=== PATIENT | female | born 1965 | race Caucasian/White ===

== ENCOUNTER 2019-06-17 08:12 | Emergency (ER) | payer SELFPAY ==
[~2019-06-17] VITALS: Ht 157.5 cm; Wt 72.6 kg
[~2019-06-17 08:12] MED LIST: BACL20 PO; CHLO4 PO; CLON.1 PO; CLON.5 PO; CYCL10 PO; DIPH25 PO; DULO60 PO; FISH1000 PO; FURO40 PO; GABA400 PO; GABA600 PO; HYDACE10B PO; HYDACE5 PO; METH10 PO; METH5 PO; MIDO2.5 PO; MULVITMINE PO; NUVIGIL PO; POTCHL20ER PO; PRIMATINE MIST; SPIR25 PO; ZOLP10 PO; ZOLP5 PO
[2019-06-17] MEDS ORDERED: DULO60 PO (08:36)
[2019-06-17] MEDS ORDERED: Neurontin400 MG PO (08:36)
[2019-06-17 09:19] LABS: Bilirubin, Urine Neg (Neg); Blood, Urine Neg (Neg); Glucose Qualitative, Urine Neg (Neg); Ketones, Urine Neg (Neg); Leukocyte Esterase, Urine Neg (Neg); Nitrite, Urine Neg (Neg); Protein, Urine Neg (Neg); Urobilinogen, Urine NORM (Normal); pH, Urine 6.5 (5.0-8.0)
[2019-06-17 09:20] LABS: BASOPHILS ABSOLUTE AUTO 0.06 K/mm3 (0.00-0.23); BASOPHILS PERCENT AUTO 1 % (0-2); EOSINOPHILS ABSOLUTE AUTO 0.15 K/mm3 (0.00-0.68); EOSINOPHILS PERCENT AUTO 2 % (0-6); IMMATURE GRAN ABSOLUTE AUTO 0.01 K/mm3 (0.00-0.10); IMMATURE GRAN PERCENT AUTO 0 % (0-1); LYMPHOCYTES ABSOLUTE AUTO 1.98 K/mm3 (0.84-5.20); LYMPHOCYTES PERCENT AUTO 29 % (21-46); MONOCYTES ABSOLUTE AUTO 0.73 K/mm3 (0.16-1.47); MONOCYTES PERCENT AUTO 11 % (4-13); Mean Corpuscular Volume 81 fL (80-100); Mean Platelet Volume 9.8 fL (9.1-12.4); NEUTROPHILS ABSOLUTE AUTO 3.82 K/mm3 (1.96-9.15); NEUTROPHILS PERCENT AUTO 57 % (41-73); Platelet Count 265 K/mm3 (150-400); RDW Coefficient Variation 14.6 % (11.7-14.2); RDW Standard Deviation 43.3 fL (35.1-46.3); White Blood Cell Count 6.75 K/mm3 (4.00-11.30)
[2019-06-17 09:29] LABS: Appearance, Urine Clear (Clear); Color, Urine Yellow (P-Yellow)
[2019-06-17 09:51] LABS: Alanine Aminotransfer (ALT/SGP 49 U/L (12-78); Albumin, Blood 3.8 g/dL (3.4-5.0); Albumin/Globulin Ratio 0.7 (0.8-1.8); Alk Phos 122 U/L (50-136); Anion Gap 8 mmol/L (6-16); Aspartate Aminotrans (AST/SGOT 89 U/L (12-37); Bilirubin, Total 0.7 mg/dL (0.1-1.0); Blood Urea Nitrogen 6 mg/dL (8-24); Bun/Creatinine Ratio 10.6 (12.0-20.0); CO2, Blood 27 mmol/L (21-32); Chloride, Blood 104 mmol/L (98-108); Creatinine, Blood 0.56 mg/dL (0.40-1.00); Globulin, Blood 5.1 g/dL (2.2-4.0); Glomerular Filtration Rate >60 (60-); Glucose, Blood 101 mg/dL (70-99); Potassium, Blood 2.7 mmol/L (3.5-5.5); Sodium, Blood 139 mmol/L (136-145); Total Protein, Blood 8.9 g/dL (6.4-8.2)
[2019-06-17] MEDS ORDERED: POTCHL20ER PO (12:41)
[2019-06-17] MEDS ORDERED: Bentyl20 MG PO (12:41)
== END 2019-06-17 12:53 | disposition home or self-care (01) ==
LOC: ER 08:12
PROVIDERS: Emergency Medicine
DX: K50.90 Crohn's disease, unspecified, without complications (principal); E87.6 Hypokalemia; F17.210 Nicotine dependence, cigarettes, uncomplicated
CPT/HCPCS: 36415; 74177; 80053; 81003; 83690; 85025; 96365-59; 96375; 99284-25; A9270; J1885; J3480; Q9967

== ENCOUNTER 2019-09-13 19:12 | Inpatient (IN) | payer SELFPAY ==
[~2019-09-13] VITALS: Ht 152.4 cm; Wt 76.6 kg
[~2019-09-13 19:12] MED LIST changes: +ALBU90OI INH; +Bentyl20 MG PO; +K-Dur20 MEQ PO; +Neurontin400 MG PO
[2019-09-13 19:40] LABS: BASOPHILS ABSOLUTE AUTO 0.03 K/mm3 (0.00-0.23); BASOPHILS PERCENT AUTO 0 % (0-2); EOSINOPHILS ABSOLUTE AUTO 0.01 K/mm3 (0.00-0.68); EOSINOPHILS PERCENT AUTO 0 % (0-6); IMMATURE GRAN ABSOLUTE AUTO 0.05 K/mm3 (0.00-0.10); IMMATURE GRAN PERCENT AUTO 0 % (0-1); LYMPHOCYTES ABSOLUTE AUTO 2.26 K/mm3 (0.84-5.20); LYMPHOCYTES PERCENT AUTO 18 % (21-46); MONOCYTES ABSOLUTE AUTO 1.05 K/mm3 (0.16-1.47); MONOCYTES PERCENT AUTO 9 % (4-13); Mean Corpuscular HGB 20.6 pg (26.0-34.0); Mean Corpuscular HGB Conc 29.2 g/dL (31.5-36.5); Mean Corpuscular Volume 71 fL (80-100); Mean Platelet Volume 10.4 fL (9.1-12.4); NEUTROPHILS ABSOLUTE AUTO 9.01 K/mm3 (1.96-9.15); NEUTROPHILS PERCENT AUTO 73 % (41-73); NRBC ABSOLUTE 0.07 K/mm3 (0.00-0.02); NRBC Auto 0.6 /100 WBC (0.0-0.2); Platelet Count 344 K/mm3 (150-400); RDW Coefficient Variation 17.2 % (11.7-14.2); RDW Standard Deviation 43.4 fL (35.1-46.3); Red Blood Cell Count 2.18 M/mm3 (3.80-5.20); White Blood Cell Count 12.41 K/mm3 (4.00-11.30)
[2019-09-13 19:46] LABS: Hematocrit 15.4 % (33.0-51.0)
[2019-09-13 19:47] LABS: Hemoglobin 4.5 g/dL (11.5-16.0)
[2019-09-13 19:48] LABS: Alanine Aminotransfer (ALT/SGP 37 U/L (12-78); Albumin/Globulin Ratio 0.8 (0.8-1.8); Alk Phos 72 U/L (50-136); Anion Gap 19 mmol/L (6-16); Aspartate Aminotrans (AST/SGOT 63 U/L (12-37); Bilirubin, Total 0.7 mg/dL (0.1-1.0); Blood Urea Nitrogen 19 mg/dL (8-24); Bun/Creatinine Ratio 34.4 (12.0-20.0); CO2, Blood 17 mmol/L (21-32); Calcium, Blood 8.6 mg/dL (8.5-10.1); Chloride, Blood 102 mmol/L (98-108); Creatinine, Blood 0.55 mg/dL (0.40-1.00); Globulin, Blood 3.7 g/dL (2.2-4.0); Glomerular Filtration Rate >60 (60-); Glucose, Blood 142 mg/dL (70-99); Potassium, Blood 2.9 mmol/L (3.5-5.5); Sodium, Blood 138 mmol/L (136-145); Total Protein, Blood 6.7 g/dL (6.4-8.2)
[2019-09-13 19:58] LABS: International Normalized Ratio 1.36; Prothrombin Time Results 14.3 Sec (9.7-11.5)
[2019-09-13] MEDS ORDERED: BUPROPION HCL75 M1 PO (20:04)
[2019-09-13 20:48] LABS: Percent Saturation 3.2 % (15.0-50.0)
--- NOTE | 2019-09-13 22:09 | NUR ---
ADMIT NOTE HANDOFF RECEIVED FROM ER NURSE KENYATTA. PT ARRIVED TO FLOOR VIA GURNEY. PERSONAL POSSESSIONS WITH PT IN ROOM. PT ORIENTED TO UNIT. CALL BUTTON WITHIN REACH.
--- NOTE | 2019-09-14 00:10 | NUR ---
CALLED HOSPITALIST PT IS TACHYCARDIC (WAS ON ADMIT). SHE IS ALSO TACHYPNEIC AND NAUSEOUS. HER GLUCOSE IS 115. SHE STATED SHE OCCASIONALLY DRINKS, ALCOHOL OF ALL KINDS. HOSPITALIST ORDERED UA AND BLOOD ALCOHOL LEVEL.
[2019-09-14 00:34] LABS: U Amphetamine Screen Not Detected; U Barbituate Screen Not Detected; U Benzodiazapine Screen Not Detected; U Buprenorphine Screen Not Detected; U Cannabinoids Screen Not Detected; U Cocaine Screen Not Detected; U Methadone Screen Not Detected; U Methamphetamine Screen Not Detected; U Opiates Screen Not Detected; U Oxycodone Screen Not Detected; U Phencyclidine Screen Not Detected; U Propoxyphene Screen Not Detected
[2019-09-14 00:35] LABS: Ethanol (Alcohol), Blood, Med 99 mg/dL
[2019-09-14 02:41] LABS: BASOPHILS ABSOLUTE AUTO 0.08 K/mm3 (0.00-0.23); BASOPHILS PERCENT AUTO 1 % (0-2); EOSINOPHILS ABSOLUTE AUTO 0.02 K/mm3 (0.00-0.68); EOSINOPHILS PERCENT AUTO 0 % (0-6); Hematocrit 19.9 % (33.0-51.0); Hemoglobin 6.6 g/dL (11.5-16.0); IMMATURE GRAN ABSOLUTE AUTO 0.07 K/mm3 (0.00-0.10); IMMATURE GRAN PERCENT AUTO 1 % (0-1); LYMPHOCYTES PERCENT AUTO 17 % (21-46); MONOCYTES ABSOLUTE AUTO 1.93 K/mm3 (0.16-1.47); MONOCYTES PERCENT AUTO 15 % (4-13); Mean Corpuscular HGB Conc 33.2 g/dL (31.5-36.5); Mean Platelet Volume 9.9 fL (9.1-12.4); NEUTROPHILS ABSOLUTE AUTO 8.73 K/mm3 (1.96-9.15); NEUTROPHILS PERCENT AUTO 67 % (41-73); NRBC ABSOLUTE 0.11 K/mm3 (0.00-0.02); NRBC Auto 0.8 /100 WBC (0.0-0.2); Platelet Count 248 K/mm3 (150-400); RDW Coefficient Variation 18.1 % (11.7-14.2); RDW Standard Deviation 47.4 fL (35.1-46.3); Red Blood Cell Count 2.64 M/mm3 (3.80-5.20); White Blood Cell Count 13.03 K/mm3 (4.00-11.30)
[2019-09-14 02:47] LABS: Mean Corpuscular Volume 75 fL (80-100)
[2019-09-14 02:58] LABS: Alanine Aminotransfer (ALT/SGP 40 U/L (12-78); Albumin, Blood 2.8 g/dL (3.4-5.0); Albumin/Globulin Ratio 0.8 (0.8-1.8); Alk Phos 65 U/L (50-136); Anion Gap 10 mmol/L (6-16); Aspartate Aminotrans (AST/SGOT 71 U/L (12-37); Bilirubin, Total 2.2 mg/dL (0.1-1.0); Blood Urea Nitrogen 20 mg/dL (8-24); Bun/Creatinine Ratio 40.4 (12.0-20.0); CO2, Blood 24 mmol/L (21-32); Calcium, Blood 8.1 mg/dL (8.5-10.1); Chloride, Blood 103 mmol/L (98-108); Globulin, Blood 3.5 g/dL (2.2-4.0); Glomerular Filtration Rate >60 (60-); Glucose, Blood 134 mg/dL (70-99); Potassium, Blood 3.2 mmol/L (3.5-5.5); Sodium, Blood 137 mmol/L (136-145); Total Protein, Blood 6.3 g/dL (6.4-8.2)
--- NOTE | 2019-09-14 05:53 | NUR ---
CALLED HOSPITALIST FOLLOWING TRANSFUSION OF 2 UNITS PRBC'S: PT HGB LAB HAS RISEN FROM 4.5 TO 6.6, HCT LAB HAS RISEN FROM 15.4 TO 19.9, WBC COUNT HAS RISEN FROM 12.41 TO 13.03. HOSPITALIST ADVISED ME TO CONTINUE TO MONITOR, NO NEW ORDERS. THEY WILL RE-EVALUATE IN THE AM.
--- NOTE | 2019-09-14 05:58 | NUR ---
SHIFT SUMMARY PT ADMITTED FOR SYMPTOMATIC ANEMIA. FULL CODE. 2 UNITS OF PRBC'S TRANSFUSED (SEE PREVIOUS NOTE). PT HAS TREMORS, IS TACHYCARDIC & TACHYPNEIC. SHE HAS DYSPNEA W/EXERTION. SHE IS ALSO NAUSEOUS. GLUCOSE IS 115, WE DID DO A UA - NEGATIVE, A BLOOD ALCOHOL LEVEL - THAT WAS 99. STILL REQUIRE A STOOL SAMPLE. HOPEFUL FOR A GI CONSULT. CLEAR LIQUID DIET. I AM UNSURE IF SHE IS COMPLETELY A&O X4 SHE DENIED EVER GETTING A COVID TEST, ALTHOUGH THIS IS DOCUMENTED IN HER HX. IT IS REPORTED TO ME THAT HER PURSE IS FILLED WITH LITTLE BLACK SUGAR ANTS, SO WE HAVE STICKY MAT DOWN AT THE DOORWAY AND THE PURSE IS BAGGED. HX: POSSIBLE IBS/CROHNS DISEASE, HYPOKALEMIA, NOSEBLEEDS 2X/WEEK, SMOKES 5 CIGARETTES PER DAY.
--- NOTE | 2019-09-14 07:00 | NUR ---
ASSUMED CARE OF PT- BEDSIDE REORT COMPKLETED WITH NIGHT DEBORAH BLAKE. PER REPORT PT HAS BEEN ANXIOUS T/O THE NIGHT, HGB WAS CRITICALLY LOW AT 4.5. PT HAD 2 UNITS PRBC'S T/O THE NIGHT AND FOLLOW UP HGB WAS 6.6. WAS NOTIFIED NO NEW ORDR TO TRANSFUSE LAST NIGHT. PT SLEEPING SOUNDLY AT THE TIME OF BEDSIDE REPORT, "THIS IS THE MOST RELAXED SHE HAS BEEN ALL NIGHT." PER REPORT FROM NIGHT RN PT WAS REPORTED TO BE A&O X4 BUT FOR HER WAS MORE LIKE A&O TO SELF.
--- NOTE | 2019-09-14 07:40 | NUR ---
PROJECT EXECUTIVE KIRIT NOTIFIED OF VEWS SCORE AND PT STATUS ASSISTED IN CALLING DR HERNANDEZ. PT WAS ABLE TO SWALLOW A SIP OF WATER. ABD ROUND AND DISTENDED. NO BM ON SALESPERSON YARD GOODS. ORDER FOR STOOL SAMPLE NOTED IN THE COMPUTER, HOWEVER GUIACC IN ED WAS NEGATIVE. NEW ORDER FOR GI CONSULT RECIEVED WILL CALL DR CEBALLOS.
--- NOTE | 2019-09-14 07:45 | NUR ---
CALLED DR HERNANDEZ- ON MORNING VITALS PT HAD A VEW SCORE OF 4 RESP RATE 28. PT FOLLOWS INSTRUCTIONS BUT MOANS AND HAS MINIMAL VERBAL RESPONSES. SHE CAN MUMBLE HER DATE OF SHAKE AND NOD HER HEAD. AT THE TIME OF VITALS SHE WAS VERY LETHARGIC AND TACHYPNEIC. PUPILS ARE 8MM AND VERY SLUGGISH TO RESPOND. WHEN ASKED IF SHE DRINKS ALCOHOL EVERY DAY PT NODS YES. UNABLE TO DETERMINE HOW MUCH SHE DRINKS. SPOKE TO ABOUT PT HGB 6.6 AND RECIEVED ORDER FOR ANOTHER 2 UNITS PRBC.
--- NOTE | 2019-09-14 08:10 | NUR ---
CALLED BLOOD BANK TO ENSURE THEY GOT THE ORDER. THEY HAD NOT YET GOTTEN IT, WORKING ON IT NOW.
--- NOTE | 2019-09-14 10:38 | NUR ---
1004PT TRANSFERED TO PCU FROM MEDICAL FLOOR VIA BED. BEDS EXCHANGED. PT RECIEVING PRBC UNIT 3 OF 4 ORDERED. PT LETHARGIC, ARROUSED WITH VERBAL STIMULATION. PT IS CONFUSED, NEW NAME AND , DID NOT ANSWER MONTH OR YEAR CORRENCTLY. PUPILS DIALATED TO 6MM, ALTHOUGH EYES WERE MOSTLY CLOSED, TEST DEPARTMENT HELPER EQUAL. PT DENIED PAIN. TACHYNEPNIC, TAHCYCARDIC. LUNGS CLEAR. DR. HERNANDEZ NOTIFIED OF ASSESSMENT, NO NEW ORDERS RECIEVED.
--- NOTE | 2019-09-14 11:09 | NUR ---
Pt is moaning, awakened and states she needs to poop. Asssisted to BSC but she was unable to have a BM. Denies pain. spo2 100% on room air. States that she drinks about 6 shots of whiskey per day, and that last drink was 2 days ago. STates that she has had withdrawl symptoms before, and she feels that she is having them now, too. Denies headache, denies hallucinations, denies anxiety or agitation. Noted shakiness of all extremities and also she is c/o nausea. Unable to state date except for year, unable to add serial numbers. Able to state her own name and birthdate. She is moaning softly, but denies pain. When asked why she is moaning, she states "because I can't breathe." RR 14 when she is sleeping, up to 20 while awake.
--- NOTE | 2019-09-14 12:53 | NUR ---
BLADDER SCAN VOLUME 516 AFTER TWO ATTEMPTS TO VOID. DR. HERNANDEZ NOTIFIED AND SHE REPORTED THAT SHE PLACE ORDERS FOR BLADDER SCAN AND STRAIGHT CATH.
[2019-09-14 17:49] LABS: Hematocrit 23.6 % (33.0-51.0); Hemoglobin 8.4 g/dL (11.5-16.0)
--- NOTE | 2019-09-14 17:56 | NUR ---
SHIFT SUMMARY. TRANSFER FROM MEDICAL FLOOR TODAY FOR AMS AND SOB. PT CONFUSED THIS SHIFT, COGNITION IMPROVED SLIGHTLY THIS AFTERNOON AFTER LIBRIUM WAS GIVEN. PT IS ONLY ORIENTATED TO SELF AND KNEW SHE WAS IN THE HOSPITAL. IS ABLE TO FOLLOW SIMPLE COMMANDS. CIWA 7-9. 2 UNITS PRBC COMPLETED TODAY. BANANNA BAG COMPLETED. PT'S YUNI UPDATED ON STATUS. DR. CEBALLOS CONSULTED THIS AFTERNOON.
[2019-09-14 20:44] LABS: Hemoglobin 8.7 g/dL (11.5-16.0)
--- NOTE | 2019-09-14 22:33 | NUR ---
ASSUMED CARE OF PATIENT AT APPROXIMATELY 1905 FROM FRANNY Peralta RN. PATIENT RESPONDS TO VERBAL STIMULUS. PATIENT ABLE TO STATE NAME AND AFTER LONG PERIODS; SLOW TO RESPOND; MOANS MOST OF TIME; ANSWERS WITH ONE WORD AT A TIME; CIWA 10. PATIENT DENIES PAIN, NUMBNESS, TINGLING, DIZZINESS OR NAUSEA. NSR/ST ON TELE; OXYGEN SATURATION ABOVE 90% ON ROOM AIR; RESPIRATORY RATE INCRASES BY 10 WHEN PATIENT WAKES UP AND STAFF ARE IN ROOM. PIV X2 S/L. PATIENT VERY IMPULSIVE; DOESNT CALL BEFORE AMBULATION; FALL RISK. PATIENT ATTMEPTED TO VOID TWICE AND NO OUTPUT; 150 AT START OF SHIFT; BLADDER SCAN OVER 500; WILL CALL MD FOR ORDERS. PATIENT CURRENTLY RESTING IN BED; CALL LIGHT IN REACH; BED IN LOWESEST PSOSTION; BED ALARM ON; WILL CONTINUE TO MONITOR AND ASSESS UNTIL END OF SHIFT.
[2019-09-14 23:36] LABS: Source, Urine Catheter
[2019-09-14 23:39] LABS: Bilirubin, Urine Neg (Neg); Blood, Urine Neg (Neg); Glucose Qualitative, Urine Neg (Neg); Ketones, Urine 1+ (Neg); Leukocyte Esterase, Urine Neg (Neg); Nitrite, Urine Neg (Neg); Protein, Urine Neg (Neg); Urobilinogen, Urine 3+ (Normal)
[2019-09-14 23:41] LABS: Appearance, Urine Clear (Clear); Color, Urine Yellow (P-Yellow)
[2019-09-15 03:35] LABS: BASOPHILS ABSOLUTE AUTO 0.09 K/mm3 (0.00-0.23); BASOPHILS PERCENT AUTO 1 % (0-2); EOSINOPHILS ABSOLUTE AUTO 0.33 K/mm3 (0.00-0.68); EOSINOPHILS PERCENT AUTO 3 % (0-6); Hematocrit 23.1 % (33.0-51.0); Hemoglobin 8.3 g/dL (11.5-16.0); IMMATURE GRAN ABSOLUTE AUTO 0.03 K/mm3 (0.00-0.10); IMMATURE GRAN PERCENT AUTO 0 % (0-1); LYMPHOCYTES ABSOLUTE AUTO 2.01 K/mm3 (0.84-5.20); LYMPHOCYTES PERCENT AUTO 21 % (21-46); MONOCYTES PERCENT AUTO 9 % (4-13); Mean Corpuscular HGB 28.5 pg (26.0-34.0); Mean Corpuscular HGB Conc 35.9 g/dL (31.5-36.5); Mean Platelet Volume 9.9 fL (9.1-12.4); NEUTROPHILS ABSOLUTE AUTO 6.28 K/mm3 (1.96-9.15); NEUTROPHILS PERCENT AUTO 65 % (41-73); NRBC ABSOLUTE 0.05 K/mm3 (0.00-0.02); NRBC Auto 0.5 /100 WBC (0.0-0.2); Platelet Count 175 K/mm3 (150-400); RDW Coefficient Variation 18.6 % (11.7-14.2); RDW Standard Deviation 50.1 fL (35.1-46.3); Red Blood Cell Count 2.91 M/mm3 (3.80-5.20); White Blood Cell Count 9.64 K/mm3 (4.00-11.30)
[2019-09-15 03:36] LABS: Mean Corpuscular Volume 79 fL (80-100)
[2019-09-15 03:50] LABS: Albumin, Blood 2.8 g/dL (3.4-5.0); Anion Gap 7 mmol/L (6-16); Blood Urea Nitrogen 13 mg/dL (8-24); Bun/Creatinine Ratio 22.1 (12.0-20.0); CO2, Blood 26 mmol/L (21-32); Calcium, Blood 8.1 mg/dL (8.5-10.1); Chloride, Blood 106 mmol/L (98-108); Creatinine, Blood 0.59 mg/dL (0.40-1.00); Glomerular Filtration Rate >60 (60-); Glucose, Blood 107 mg/dL (70-99); Phosphorus, Blood 2.7 mg/dL (2.5-4.9); Potassium, Blood 2.5 mmol/L (3.5-5.5); Sodium, Blood 139 mmol/L (136-145)
--- NOTE | 2019-09-15 05:34 | NUR ---
PATIENT SLEPT ABOUT NINE HOURS LAST NIGHT. LESS ANXIETY. CIWA 10; MEDICATED WITH LIBRIUM; GOOD RESULTS. URINARY CATH PLACED LAST NIGHT; UA SENT. VSS. K+ 2.5 THIS AM; CALLED DR. SEARS; ORDERS FOR PO KCL. WILL CONTINUE TO MONITOR AND ASSESS UNTIL END OF SHIFT.
--- NOTE | 2019-09-15 18:35 | NUR ---
PT SUMMARY: PT ON ETOH WITHDRAWAL, ALERT TO SELF KNOWS WHERE SHE'S AT, UNSURE OF TIME AND DATE. CIWA HAS BEEN 10,12,8 FOR THE SHIFT. LIBRIUM ADMINISTERED X 3 FOR THE SHIFT, C/O MILD NAUSEA RELIEVED BY SODA. PT HAS BEEN RECEIVING LACTULOSE QID HAD ABOUT 5X BM OF LOOSE SOFT BLACK BROWN STOOL. STOOL SAMPLE SENT TO LAB FOR TESTING. NO TREMORS NOTED, NO HEADACHE REPORTED, PT C/O LEFT LOWER BACK PAIN, PT ALSO STATE SHE WAS NEWLY DIAGNOSED WITH CROHN'S DSE, LACTULOSE WAS HOLD FOR TODAY'S LAST DOSE DR. HERNANDEZ TO PUT NEW ORDERS IN THE AM FOR LACTULOSE. PT WAS ABLE TO TRANSFER SBA TO THE BATH ROOM, BED ALARM ON ATTEMPTS TO TRY TO GET UP BY HERSELF BUT IS ABLE TO USE STRING CALL SYSTEM IN THE BATHROOM. PT FOLLOWS DIRECTION BUT GETS EASILY DISTRACTED. POTASSIUM WAS 3.0 THIS MORNING 2 BAG OF 20MEQ GIVEN LABS TO FOLLOW IN AM. PT REMAINS ON CLEAR LIQUID DIET. CURRENTLY RESTING IN BED, CALL LIGHTS WITHIN REACH WILL MONITOR
--- NOTE | 2019-09-15 20:53 | NUR ---
ASSUMED CARE OF PATIENT AT APPROXIMATELY 1905 FROM BLAIR Rodríguez RN. PATIENT RESPONDS TO VERBAL STIMULUS; OPENS EYES SPONTANEOUSLY. PATIENT MORE ALERT TODAY; ABLE TO STATE NAME, AND LOCATION BUT UNABLE TO STATE DATE. PATIENT REPORTS SHE WISHES HER WAS HERE WITH HER; REPORTS SHE IS CONCERNED THAT SHE MAY HAVE LOST HER JOB. CIWA 8. PATIENT DENIES PAIN, NUMBNESS, TINGLING, DIZZINESS OR NAUSEA. NSR ON TELE; OXYGEN SATURATION ABOVE 90% ON ROOM AIR. PATIENT HAD MULTIPLE LOOSE BMS TODAY; LACTULOSE HELD. PATIENT WEAK; MODERATE ASSIST TO BATHROOM; ATTENDS IN PLACE; URINARY CATH IN PLACE. PIV S/L. PATIENT VERY IMPULSIVE AT TIMES; DOESNT CALL BEFORE AMBULATION; FALL RISK. PATIENT CURRENTLY RESTING IN BED; CALL LIGHT IN REACH; BED IN LOWESEST PSOSTION; BED ALARM ON; WILL CONTINUE TO MONITOR AND ASSESS UNTIL END OF SHIFT.
[2019-09-16 04:06] LABS: HBSAG SCREEN Negative (Negative); HCV ANTIBODY <0.1 (0.0-0.9); HEP B CORE AB, TOT Negative (Negative)
[2019-09-16 04:17] LABS: BASOPHILS ABSOLUTE AUTO 0.05 K/mm3 (0.00-0.23); BASOPHILS PERCENT AUTO 0 % (0-2); EOSINOPHILS ABSOLUTE AUTO 0.14 K/mm3 (0.00-0.68); EOSINOPHILS PERCENT AUTO 1 % (0-6); Hematocrit 24.2 % (33.0-51.0); Hemoglobin 8.4 g/dL (11.5-16.0); IMMATURE GRAN ABSOLUTE AUTO 0.05 K/mm3 (0.00-0.10); IMMATURE GRAN PERCENT AUTO 0 % (0-1); LYMPHOCYTES PERCENT AUTO 8 % (21-46); MONOCYTES ABSOLUTE AUTO 0.72 K/mm3 (0.16-1.47); MONOCYTES PERCENT AUTO 6 % (4-13); Mean Corpuscular HGB 28.1 pg (26.0-34.0); Mean Corpuscular HGB Conc 34.7 g/dL (31.5-36.5); Mean Corpuscular Volume 81 fL (80-100); Mean Platelet Volume 10.3 fL (9.1-12.4); NEUTROPHILS ABSOLUTE AUTO 10.37 K/mm3 (1.96-9.15); NEUTROPHILS PERCENT AUTO 84 % (41-73); NRBC ABSOLUTE 0.04 K/mm3 (0.00-0.02); NRBC Auto 0.3 /100 WBC (0.0-0.2); Platelet Count 171 K/mm3 (150-400); RDW Coefficient Variation 21.5 % (11.7-14.2); RDW Standard Deviation 52.4 fL (35.1-46.3); Red Blood Cell Count 2.99 M/mm3 (3.80-5.20); White Blood Cell Count 12.33 K/mm3 (4.00-11.30)
[2019-09-16 04:46] LABS: Albumin, Blood 2.7 g/dL (3.4-5.0); Anion Gap 7 mmol/L (6-16); Blood Urea Nitrogen 9 mg/dL (8-24); Bun/Creatinine Ratio 19.1 (12.0-20.0); CO2, Blood 23 mmol/L (21-32); Calcium, Blood 7.9 mg/dL (8.5-10.1); Chloride, Blood 107 mmol/L (98-108); Creatinine, Blood 0.47 mg/dL (0.40-1.00); Glomerular Filtration Rate >60 (60-); Glucose, Blood 126 mg/dL (70-99); Phosphorus, Blood 2.9 mg/dL (2.5-4.9); Potassium, Blood 2.8 mmol/L (3.5-5.5); Sodium, Blood 137 mmol/L (136-145)
--- NOTE | 2019-09-16 06:23 | NUR ---
PATIENT BECAME MORE DISORIENTED T/O NIGHT; LIGHT BOTHERING HER EYES; AMBULATED MULTIPLE TIMES TO HAVE BM BUT NO BM. PATIENT WAS MEDICATED FOR CIWA 8-10. PATINET SLEPT ABOUT SEVEN HOURS LAST NIGHT. CALL DR. PATEL ABOUT K+ 2.8; ORDERS FOR 2X 40 MEQ 2 HOURS APART THEN REPEAT K+ AT 1300. VSS. WILL CONTINUE TO MONITOR AND ASSESS UNTIL END OF SHIFT.
[2019-09-16 07:07] LABS: COMPLEMENT C3, SERUM 97 mg/dL (82-167); COMPLEMENT C4, SERUM 12 mg/dL (14-44)
[2019-09-16 08:34] LABS: Stool Occult Bld Immuno 1 Positive (NEGATIVE)
--- NOTE | 2019-09-16 19:21 | NUR ---
PT SUMMARY: PT RESPONDS TO VERBAL STIMULI SOMETIMES UNABLE TO KEEP A CONVERSATION, SOMETIMES ABLE TO RESPOND AND TALK NORMALLY AND IS ABLE TO AMBULATE 1 PA TO THE BATHROOM. CIWA WAS 7-8 EARLY THIS SHIFT, BY THEEND OF THE SHIFT PT WAS C/O THIRST AND WAS TOLD SHE CANT HAVE ANYTHING DRINK PER DR'S ORDER PT STARTED TO GET AGITATED/EMOTIONAL STATING SHE WANTS SOMETHING TO DRINK AND WONT STAY STILL IN BED. PT WAS GIVEN ATIVAN X1 PT STARTED CALMING DOWN. NO BOWEL MOVEMENTS REPORTED FOR THE SHIFT, NO NAUSEA, HEADACHE, TREMORS NOTED. POTASSIUM CURRENTLY AT 3.2, AMMONIA LEVEL WENT UP TO 74, TO START ENEMA ENULOSE IN THE AM QD. PT NOW RESTING IN BED. RESPORT GIVEN TO ONCOMING SHIFT.
--- NOTE | 2019-09-16 22:54 | NUR ---
ASSUMED CARE OF PATIENT AT APPROXIMATELY 1905 FROM BLAIR Rodríguez RN. PATIENT RESPONDS TO VERBAL STIMULUS; MOANING IN BED; ONE WORD AT A TIME; LETHARGIC. PATIENT VERY IMPULSIVE TONIGHT. CIWA 10. PATIENT DENIES PAIN, NUMBNESS, TINGLING, DIZZINESS OR NAUSEA. NSR ON TELE; OXYGEN SATURATION ABOVE 90% ON ROOM AIR. PATIENT NPO. PATIENT WEAK; MAX ASSIST TO BATHROOM; ATTENDS IN PLACE; URINARY CATH IN PLACE. PIV S/L. PATIENT DOESNT CALL BEFORE AMBULATION; FALL RISK. CALLED MAINTENANCE ELECTRICIAN SANDIP AT [facility] 2220 TO REPORT PATIENT IMPULSIVE; AMBULATING EVERY FEW MINUTES AT TIMES; CONFUSION; RISK FOR INJURY AND CIWA OF 10; ORDER FOR VEST. PATIENT STILL ATTEMPTING TO GET OUT OF BED WITH VEST ON. PATIENT CURRENTLY RESTING IN BED; CALL LIGHT IN REACH; BED IN LOWESEST PSOSTION; BED ALARM ON; WILL CONTINUE TO MONITOR AND ASSESS UNTIL END OF SHIFT.
[2019-09-17 03:44] LABS: BASOPHILS ABSOLUTE AUTO 0.08 K/mm3 (0.00-0.23); BASOPHILS PERCENT AUTO 1 % (0-2); EOSINOPHILS ABSOLUTE AUTO 0.53 K/mm3 (0.00-0.68); EOSINOPHILS PERCENT AUTO 3 % (0-6); Hematocrit 22.7 % (33.0-51.0); Hemoglobin 7.6 g/dL (11.5-16.0); IMMATURE GRAN ABSOLUTE AUTO 0.05 K/mm3 (0.00-0.10); IMMATURE GRAN PERCENT AUTO 0 % (0-1); LYMPHOCYTES ABSOLUTE AUTO 2.06 K/mm3 (0.84-5.20); LYMPHOCYTES PERCENT AUTO 12 % (21-46); MONOCYTES PERCENT AUTO 7 % (4-13); Mean Corpuscular HGB Conc 33.5 g/dL (31.5-36.5); Mean Platelet Volume 10.3 fL (9.1-12.4); NEUTROPHILS ABSOLUTE AUTO 13.67 K/mm3 (1.96-9.15); NEUTROPHILS PERCENT AUTO 78 % (41-73); NRBC ABSOLUTE 0.02 K/mm3 (0.00-0.02); NRBC Auto 0.1 /100 WBC (0.0-0.2); Platelet Count 175 K/mm3 (150-400); RDW Coefficient Variation 24.6 % (11.7-14.2); RDW Standard Deviation 55.6 fL (35.1-46.3); Red Blood Cell Count 2.71 M/mm3 (3.80-5.20); White Blood Cell Count 17.59 K/mm3 (4.00-11.30)
[2019-09-17 03:48] LABS: Mean Corpuscular Volume 84 fL (80-100)
[2019-09-17 03:59] LABS: Albumin, Blood 2.5 g/dL (3.4-5.0); Anion Gap 7 mmol/L (6-16); Blood Urea Nitrogen 6 mg/dL (8-24); Bun/Creatinine Ratio 11.8 (12.0-20.0); CO2, Blood 24 mmol/L (21-32); Calcium, Blood 7.8 mg/dL (8.5-10.1); Chloride, Blood 108 mmol/L (98-108); Creatinine, Blood 0.51 mg/dL (0.40-1.00); Glomerular Filtration Rate >60 (60-); Glucose, Blood 107 mg/dL (70-99); Phosphorus, Blood 2.7 mg/dL (2.5-4.9); Sodium, Blood 139 mmol/L (136-145)
--- NOTE | 2019-09-17 05:57 | NUR ---
PATIENT'S CIWA UP TO 23 AT ONE POINT; MEDICATED PER EMAR. VSS. NO OTHER ACUTE CHANGES TO REPORT. WILL CONTINUE TO MONITOR AND ASSESS UNTIL END OF SHIFT.
[2019-09-17 12:55] LABS: Hematocrit 25.3 % (33.0-51.0); Hemoglobin 8.4 g/dL (11.5-16.0)
[2019-09-17 15:08] LABS: ANTI-DSDNA ANTIBODIES 1 IU/mL (0-9); SJOGREN'S ANTI-SS-A <0.2 AI (0.0-0.9); SJOGREN'S ANTI-SS-B <0.2 AI (0.0-0.9); SMITH ANTIBODIES <0.2 AI (0.0-0.9)
--- NOTE | 2019-09-17 17:47 | NUR ---
SHIFT SUMMARY PT ALERT AND ORIENTED TO SELF. PT NOT FOLLOWING DIRECTIONS. UNABLE TO REDIRECT PT. PT MOANS OR SPEECH IS GARBLED AND DIFFICULT TO UNDERSTAND. VS STABLE. HR NSR. BP STABLE. PT MEDICATED PER CIWA PROTOCOL. CIWA HAS BEEN FROM 1O-[address] HERNANDEZ CALLED IN REGARDS TO PT RECEIVING 22MG OF ATIVAN IN THE LAST 24 HOURS AND ALMOST REACHING THE MAX DOSE. NEW ORDERS FOR PT TO GO TO ICU FOR PRECEDEX AND CLOSER MONITORING. PT IS IN BILATERAL SOFT WRIST RESTRAINTS AND DANIELLE VEST. PT HAS BEEN ABLE TO PULL HER ARMS OUT OF WRISTS RESTRAINTS MULTIPLE TIMES AND PULLING AT LINES AND TUBES. ALLISON CATHETER IS SECURED AND DRAINING. PT HAS HAD 5 LOOSE BM THIS SHIFT AFTER LACTULOSE ENEMA. ATTENDS IN PLACE. WILL CONINTUE TO MONITOR CLOSELY UNTIL TRANSFER TO ICU BED.
--- NOTE | 2019-09-17 19:01 | NUR ---
1850 PT TRANSFERED TO ICU-7 VIA BED WITH VEST AND BLUE SOFT WRIST RESTRAINTS IN PLACE. PT CURRENTLY MOANS BUT IS LETHARGIC AND NOT FOLLOWING COMMANDS OR AGITATION. PT SEDATE AND CALM ON ATIVAN WHEN LEFT ALONE. VS NOTED. TONIE IV CLOTTED OFF. ATTENDS DRY. RR REGULAR AT 18-20 ON RA WITH 94 SATS. SR
--- NOTE | 2019-09-17 19:52 | NUR ---
DR. PIERSON INFORMED THAT PATIENT NPO AND DOES NOT HAVE ANY MAINTENANCE FLUIDS INFUSING. STATED SHE WILL LOOK INTO.
[2019-09-17 20:13] LABS: Hematocrit 25.4 % (33.0-51.0); Hemoglobin 8.3 g/dL (11.5-16.0)
--- NOTE | 2019-09-17 20:15 | NUR ---
INITIAL ASSESSMENT PATIENT SLEEPING SOUNDLY UPON ENTERING ROOM. PATIENT WAKES TO VERBAL STIMULI. PATIENT VERY IMPULSIVE AND LABILE. PATIENT EITHER SLEEPING SOUNDLY OR AWAKE, AGITATED AND TRYING TO CRAWL OUT OF BED. PATIENT NOT FORMING SENTENCES OR SAYING WORDS AT THIS TIME. PATIENT NODDING "YES" TO ALL QUESTIONS EVEN IF ANSWER IS NO. CIWA SCORE OF 13. PATIENT WEAK BUT MOVING ALL EXTREMITIES AND REPOSITIONING OWN HIPS. PATIENT AFEBRILE. PATIENT SATTING 90% AND GREATER ON RA. LUNGS CLEAR THROUGHOUT. NO COUGH NOTED AT THIS TIME. PATIENT IN SR TO ST, HR 90S TO 100. BP STABLE. PULSES STRONG. SCDS IN PLACE. NON-PITTING EDEMA NOTED TO R UPPER ARM; NON-PATENT IV DC'D IN THIS ARM THIS SHIFT. ABDOMEN MILDLY DISTENDED, TENDER, WITH NORMOACTIVE BS NOTED. UMBILICAL HERNIA NOTED. PATIENT BEING GIVEN SCHEDULED LACTULOSE DAILY. ALLISON IN PLACE, DRAINING DARK ORANGE COLORED URINE. IVS FLUSHED AND SALINE LOCKED. BED LOW, CALL LIGHT IN REACH. WILL CONTINUE TO MONITOR PATIENT FREQUENTLY THROUGHOUT SHIFT.
--- NOTE | 2019-09-17 22:10 | NUR ---
SPOKE WITH DR. PIERSON ABOUT PATIENT'S SBP OF 80 AND THAT SHE IS ON PRECEDEX AT 0.2 MCG/ KG/ HOUR. ORDERED FOR NS AT 100 MLS/ HOUR.
--- NOTE | 2019-09-17 23:57 | NUR ---
PATIENT CONTINUES TO BE EITHER SLEEPING SOUNDLY OR AWAKE AND VERY AGITATED, PULLING AT RESTRAINTS AND TRYING TO CRAWL OUT OF BED. PATIENT CONTINUES TO BE CONFUSED. CIWA SCORE OF 13. PATIENT AFEBRILE. PRECEDEX ON SB BP CONTINUES TO BE SOFT. NS INFUSING AT 100 MLS/ HOUR TO HELP WITH HYPOTENSION AND BECAUSE PATIENT IS NPO AT THIS TIME. PATIENT REMAINS SR TO ST, HR 80S TO 100. PATIENT ON 2 L NC FOR PERIODS OF APNEA WHILE SLEEPING SOUNDLY. NO OTHER ACUTE CHANGES TO NOTE ON AT THIS TIME. WILL CONTINUE TO MONITOR.
[2019-09-18 03:21] LABS: BASOPHILS ABSOLUTE AUTO 0.09 K/mm3 (0.00-0.23); BASOPHILS PERCENT AUTO 1 % (0-2); EOSINOPHILS ABSOLUTE AUTO 0.54 K/mm3 (0.00-0.68); EOSINOPHILS PERCENT AUTO 5 % (0-6); Hematocrit 24.4 % (33.0-51.0); Hemoglobin 7.8 g/dL (11.5-16.0); IMMATURE GRAN ABSOLUTE AUTO 0.03 K/mm3 (0.00-0.10); IMMATURE GRAN PERCENT AUTO 0 % (0-1); LYMPHOCYTES ABSOLUTE AUTO 1.73 K/mm3 (0.84-5.20); LYMPHOCYTES PERCENT AUTO 17 % (21-46); MONOCYTES ABSOLUTE AUTO 0.77 K/mm3 (0.16-1.47); MONOCYTES PERCENT AUTO 7 % (4-13); Mean Corpuscular HGB 27.5 pg (26.0-34.0); Mean Corpuscular Volume 86 fL (80-100); Mean Platelet Volume 10.4 fL (9.1-12.4); NEUTROPHILS PERCENT AUTO 70 % (41-73); Platelet Count 171 K/mm3 (150-400); RDW Coefficient Variation 25.2 % (11.7-14.2); RDW Standard Deviation 61.9 fL (35.1-46.3); Red Blood Cell Count 2.84 M/mm3 (3.80-5.20); White Blood Cell Count 10.36 K/mm3 (4.00-11.30)
[2019-09-18 03:37] LABS: Albumin, Blood 2.5 g/dL (3.4-5.0); Anion Gap 7 mmol/L (6-16); Blood Urea Nitrogen 5 mg/dL (8-24); Bun/Creatinine Ratio 9.7 (12.0-20.0); CO2, Blood 24 mmol/L (21-32); Calcium, Blood 7.8 mg/dL (8.5-10.1); Chloride, Blood 112 mmol/L (98-108); Creatinine, Blood 0.52 mg/dL (0.40-1.00); Glomerular Filtration Rate >60 (60-); Glucose, Blood 103 mg/dL (70-99); Phosphorus, Blood 3.4 mg/dL (2.5-4.9); Potassium, Blood 2.9 mmol/L (3.5-5.5); Sodium, Blood 143 mmol/L (136-145)
--- NOTE | 2019-09-18 04:23 | NUR ---
PATIENT REMAINS EITHER AWAKE, AGITATED, RESTLESS, TEARFUL, CRYING OR SLEEPING SOUNDLY. PATIENT REMAINS CONFUSED AND IS UNABLE TO BE REORIENTED. PATIENT AFEBRILE. PATIENT GIVEN PRN ATIVAN AND ON PRECEDEX AT 0.1 MCG/ KG/ HOUR AT THIS TIME FOR CIWA OF 13. PATIENT SATTING 90% AND GREATER ON 1 L NC. NO COUGH HEARD FROM PATIENT THUS FAR IN SHIFT. HR 70S TO 100. BP SOFT WHEN SLEEPING. BP STABLE WHEN AWAKE. NO OTHER ACUTE CHANGES TO NOTE ON AT THIS TIME. WILL CONTINUE TO MONITOR.
--- NOTE | 2019-09-18 06:05 | NUR ---
SHIFT SUMMARY PATIENT SLEPT ON AND OFF THROUGHOUT SHIFT. WHEN AWAKE, PATIENT VERY AGITATED, PULLING ON RESTRAINTS, RESTLESS, TEARFUL, MOANING, CONFUSED. CIWA REMAINED 13. PATIENT REMAINED AFEBRILE. PATIENT SATTED 90% AND GREATER ON RA TO 2 L NC. PATIENT ON RA WHILE AWAKE AND PLACED ON NC FOR PERIODS OF APNEA WHILE SLEEPING. LUNGS REMAINED CLEAR THROUGHOUT. DID NOT HEAR PATIENT COUGH THIS SHIFT. PATIENT REMAINED IN SR TO ST, HR 70S TO 100. BP SOFT WHEN SLEEPING. STABLE WHEN AWAKE. ABDOMEN REMAINED MILDLY DISTENDED, TENDER, WITH NORMOACTIVE BS. PATIENT HAD 2 SMALL, LOOSE, SOFT BMS THIS SHIFT. PATIENT REMAINED NPO. ALLISON DRAINED 350 MLS OF DARK ORANGE COLORED URINE. NO CHANGE TO SKIN. PATIENT CONTINUED TO SHIFT HIPS FREQUENTLY IN BED. PRECEDEX MOSTLY SB TO 0.2 MCG/ KG/ HOUR. PRECEDEX HELPED WITH ETOH WITHDRAWAL SYMPTOMS, HOWEVER BP SOFT AT TIMES SO PLACED ON SB. PRECEDEX CURRENTLY AT 0.1 MCG/ KG/ HOUR. NS INFUSING AT 100 MLS/ HOUR. DR. CEBALLOS HERE TO SEE PATIENT LAST NIGHT; NO ORDERS RECEIVED. PATIENT RECEIVING KCL REPLACEMENT THIS AM FOR POTASSIUM OF 2.9 THIS AM. BED LOW, CALL LIGHT IN REACH. WILL CONTINUE TO MONITOR PATIENT FREQUENTLY UNTIL REPORT GIVEN TO ONCOMING DAY SHIFT NURSE SHORTLY.
[2019-09-18 13:24] LABS: Hematocrit 22.8 % (33.0-51.0); Hemoglobin 7.4 g/dL (11.5-16.0)
--- NOTE | 2019-09-18 18:13 | NUR ---
PT STATUS HAS BEEN SOMEWHAT STABLE THIS DAY. VS NOTED AND SOMEWHAT LOW AT TIMES WHEN SEDATE/SLEEPING. PRECEDEX GTT REMAIINS AT 0.2 AND JUST PRN ATIVAN PER EMAR. I/O NOTED AND U.O LOW WITH ORDER CLARRIFICATION PER DR HERNANDEZ, SEE NAN. NOTE ORDER. EXTENSIVE ORAL CARE GIVEN WITH MOUTH BREATHING. BANANNA BAG AT 250 ML FOR REMAINDER OF BAG THEN NS AT 100ML PER ORDER.
--- NOTE | 2019-09-18 19:00 | NUR ---
ASSUMED CARE ASSUEMD CARE OF PATIENT. ROUSES TO VERBAL STIMULI. FOLLOWS SIMPLE COMMANDS. ORIENTED TO SELF ONLY AT THIS TIME. BILATERAL SOFT WRIST RESTRAINTS AND DANIELLE VEST IN PLACE. PT PULLS AGAINST RESTRAINTS AND REQUESTS THAT SHE BE "LET GO." REPOSITIONS SELF IN BED FREQUENTLY. MOANS FREQUENTLY AND OCCASIONALLY IS ABLE TO SPEAK A FEW WORDS. SPEECH IS GARBLED. MONITOR SHOWS NSR, RATE 60s. SBP 90s, MAP >65. SATS 99-100% WITH O2 @ 1LNC. RESPIRATIONS EVEN AND UNLABORED. ALLISON PATENT AND DRAINING XIOMY URINE. BANANA BAG INFUSING @ 250CC/HR. PRECEDEX GTT AT 0.2MCG/KG/HR. SEE SHIFT ASSESSMENT FOR FULL ASSESSMENT.
[2019-09-19 03:47] LABS: BASOPHILS ABSOLUTE AUTO 0.05 K/mm3 (0.00-0.23); BASOPHILS PERCENT AUTO 1 % (0-2); EOSINOPHILS PERCENT AUTO 6 % (0-6); Hematocrit 24.9 % (33.0-51.0); Hemoglobin 8.1 g/dL (11.5-16.0); IMMATURE GRAN ABSOLUTE AUTO 0.02 K/mm3 (0.00-0.10); IMMATURE GRAN PERCENT AUTO 0 % (0-1); LYMPHOCYTES ABSOLUTE AUTO 1.27 K/mm3 (0.84-5.20); LYMPHOCYTES PERCENT AUTO 16 % (21-46); MONOCYTES ABSOLUTE AUTO 0.64 K/mm3 (0.16-1.47); MONOCYTES PERCENT AUTO 8 % (4-13); Mean Corpuscular HGB 28.1 pg (26.0-34.0); Mean Corpuscular HGB Conc 32.5 g/dL (31.5-36.5); Mean Corpuscular Volume 87 fL (80-100); Mean Platelet Volume 10.3 fL (9.1-12.4); NEUTROPHILS ABSOLUTE AUTO 5.62 K/mm3 (1.96-9.15); NEUTROPHILS PERCENT AUTO 69 % (41-73); Platelet Count 159 K/mm3 (150-400); RDW Coefficient Variation 25.3 % (11.7-14.2); RDW Standard Deviation 72.5 fL (35.1-46.3); Red Blood Cell Count 2.88 M/mm3 (3.80-5.20)
[2019-09-19 04:06] LABS: Albumin, Blood 2.4 g/dL (3.4-5.0); Anion Gap 6 mmol/L (6-16); Blood Urea Nitrogen 3 mg/dL (8-24); Bun/Creatinine Ratio 5.8 (12.0-20.0); CO2, Blood 23 mmol/L (21-32); Calcium, Blood 8.1 mg/dL (8.5-10.1); Chloride, Blood 110 mmol/L (98-108); Creatinine, Blood 0.52 mg/dL (0.40-1.00); Glomerular Filtration Rate >60 (60-); Glucose, Blood 98 mg/dL (70-99); Phosphorus, Blood 3.1 mg/dL (2.5-4.9); Potassium, Blood 3.4 mmol/L (3.5-5.5); Sodium, Blood 139 mmol/L (136-145)
--- NOTE | 2019-09-19 06:21 | NUR ---
SHIFT SUMMARY NO ACUTE CHANGES. CIWA BETWEEN 7-11. PRECEDEX BETWEEN 0.2-0.4MCG/KG/HR DURING SHIFT. CONTINUES NOW AT 0.3MCG/KG/HR. MEDICATED WITH ATIVAN 2MG IV X 2 DOSES DURING NOC. DANIELLE VEST AND BILATERAL SOFT WRIST RESTRAINTS REMAIN IN PLACE. NS INFUSING @ 100CC/HR. SBP OCCASIONALLY 90s. HR 60-70s. AFEBRILE. RA SATS STABLE. RESPIRATIONS EVEN AND UNLABORED. REPOSITIONS SELF IN BED WITHOUT DIFFICULTY. SCDs OFF AT THIS TIME D/T INCREASING AGITATION WITH THEM ON. WILL REPORT TO DAY SHIFT RN WHEN AVAILABLE.
--- NOTE | 2019-09-19 07:54 | NUR ---
ASSESSMENT- PT WITH EYES OPEN, ABLE TO ANSWER NAME. ATTEMPTS TO SIT UP IN BED, ABLE TO REDIRECT SOME AND THEN BACK TO SLEEP EASILY. LYRIC COSBY. NSR, SBP 90-100'S. KISHORE IV WITH NS AT 100 CC/HR, PRECEDEX FOR SEDATION AT 0.3 MCG/KG/HR. RIGHT HAND IV INTACT. LUNGS CLEAR, RESPIRATIONS UNLABORED. ABDOMEN DISTENDED, TENDER. UO VIA ALLISON. DANIELLE RESTRAINT-FALL RISK. BED ALARM ON
--- NOTE | 2019-09-19 08:14 | NUR ---
PT ABLE TO SIT UP IN BED, ABLE TO HOLD CUP AND TAKE WATER WITHOUT ANY S/S ASPIRATION. DR. HERNANDEZ HERE-UPDATED
--- NOTE | 2019-09-19 10:34 | NUR ---
DR CEBALLOS HERE-UPDATED AND ASSESSED PT. PT ASLEEP, AWAKENS TO NAME. ABLE TO HOLD GLASS TO DRINK WATER, BACK TO SLEEP WITHOUT PROBLEMS. PT'S CALLED-UPDATED
--- NOTE | 2019-09-19 11:59 | NUR ---
PRECEDEX NEEDED TO BE INCREASED TO 0.3. PT AGITATED, CIWA INCREASED TO 11. ANXIOUS. REASSURANCE GIVEN. ABLE TO TAKE PO WITH ASSIST.
--- NOTE | 2019-09-19 13:16 | NUR ---
TESFAYE JACKSON, WAKENS TO NAME, ABLE TO FOLLOW DIRECTIONS FOR REPOSITIONING.
--- NOTE | 2019-09-19 14:22 | NUR ---
PT MORE CALM WHEN AWAKE, PRECEDEX DECREASED, PO LIBRIUM GIVEN. VS UNCHANGED.
--- NOTE | 2019-09-19 16:00 | NUR ---
PT MORE AWAKE, RESTLESS. REASSURANCE GIVEN. IVS INTACT. ATTEMPTS TO SIT UP, GET OUT OF BED, FALL RISK, BED ALARM, DANIELLE ON
--- NOTE | 2019-09-19 18:20 | NUR ---
TITRATED PRECEDEX UP, ATIVAN GIVEN FOR ANXIETY, CRYING, MOANING. DENIES HALLUCINATIONS, NO TREMORS. REPOSITIONED, ABLE TO TAKE ORAL MEDS, WATER. MOVES SELF FREQUENTLY IN BED. ELBOWS REDDENED. CONTINUE TO MONITOR
--- NOTE | 2019-09-19 20:00 | NUR ---
INITIAL ASSESSMENT PATIENT EITHER SLEEPING OR AGITATED AND TRYING TO CRAWL OUT OF BED. CIWA SCORE OF 12. PATIENT ALERT TO SELF, THAT THE YEAR IS 2019 AND TO FOLLOWING SIMPLE DIRECTIONS/ COMMANDS. NO COMPLAINTS OF PAIN. AFEBRILE. PATIENT SATTING 90% AND GREATER ON RA. LUNGS CLEAR THROUGHOUT. PATIENT IN SR, HR 60S TO 80S. BP STABLE. ABDOMEN MODERATELY DISTENDED, SOFT, WITH NORMOACTIVE BS NOTED. PATIENT ON CLEAR LIQUID DIET WHEN AWAKE AND ALERT ENOUGH. ALLISON DRAINING DARK ORANGE COLORED URINE. DRESSING PLACED TO REDDENED ELBOWS TO PROTECT SKIN. NS INFUSING AT 100 MLS/ HOUR, PRECEDEX AT 0.7 MCG/ KG/ HOUR. BED LOW, CALL LIGHT IN REACH. WILL CONTINUE TO MONITOR PATIENT FREQUENTLY THROUGHOUT SHIFT.
--- NOTE | 2019-09-20 00:19 | NUR ---
CIWA SCORE OF 12. PATIENT IS NOW ORIENTED TO TOWN. PATIENT IS EASILY REDIRECTABLE BUT FORGETS QUICKLY. PATIENT CONTINUES TO TRY AND CRAWL OUT OF BED. PATIENT AFEBRILE. NO COMPLAINTS OF PAIN. PRECEDEX INFUSING AT 0.2 MCG/ KG/ HOUR. PATIENT GIVEN PRN LIBRIUM. PATIENT IN SB TO SR, HR 50S TO 80S. SBP 80S TO LOW 100S. BP SOFT WHEN PATIENT SLEEPING SOUNDLY OR WITH PRECEDEX. NO OTHER ACUTE CHANGES TO NOTE ON AT THIS TIME. WILL CONTINUE TO MONITOR.
--- NOTE | 2019-09-20 04:25 | NUR ---
PATIENT RESPONDING TO VERBAL STIMULI. PATIENT NOT FOLLOWING DIRECTIONS. ONLY ORIENTED TO SELF. VERY AGITATED AND IRRITATED. CIWA OF 16. PATIENT ON PRECEDEX AT 0.4 MCG/ KG/ HOUR. PATIENT AFEBRILE. NO OTHER ACUTE CHANGES TO NOTE ON AT THIS TIME. WILL CONTINUE TO MONITOR.
--- NOTE | 2019-09-20 05:51 | NUR ---
SHIFT SUMMARY PATIENT REMAINED ORIENTED TO SELF. PATIENT ORIENTED TO YEAR, TOWN AND FOLLOWING DIRECTIONS AT HER BEST THIS SHIFT. THIS AM, PATIENT BECAME EVEN MORE AGITATED, AGGRESSIVE AND NO LONGER AWARE OF TOWN, YEAR OR FOLLOWING DIRECTIONS. CIWAS RANGED FROM 12 TO 16. PATIENT REMAINED IMPULSIVE AND TRYING TO CRAWL OUT OF BED. PATIENT STARTED TO PULL AT LINES AND CORDS THIS AM. PATIENT GIVEN PRN ATIVAN AND LIBRIUM TO HELP WITH ETOH WITHDRAWAL SYMPTOMS. PRECEDEX AT 0.2 MCG/ KG/ HOUR AND RANGED FROM SB TO 0.7 THIS SHIFT. PATIENT CONTINUED TO SAT 90% AND GREATER ON RA. LUNGS REMAINED CLEAR THROUGHOUT. NO COUGH NOTED THIS SHIFT. PATIENT REMAINED IN SB TO SR, HR 50S TO 80S. SBP 80S TO LOW 100S. BP SOFT WHEN ON PRECEDEX AND WHEN SLEEPING SOUNDLY. ABDOMEN REMAINS MODERATELY DISTENDED. PATIENT DID NOT HAVE BM THIS SHIFT. PATIENT TOLERATED CLEAR LIQUIDS WHEN AWAKE AND ALERT ENOUGH. ALLISON DRAINED 475 MLS OF DARK ORANGE COLORED URINE. NO CHANGE TO SKIN. PATIENT TURNED SELF FREQUENTLY IN BED. NS INFUSING AT 100 MLS/ HOUR. BED LOW, CALL LIGHT IN REACH. WILL CONTINUE TO MONITOR PATIENT FREQUENTLY UNTIL REPORT GIVEN TO ASSUMING DAY SHIFT NURSE SHORTLY.
--- NOTE | 2019-09-20 07:30 | NUR ---
ASSUMED CARE OF PT. PRECEDEX AT 0.2 MCG/KG/MIN, NS @ 100 ML/HR. LETHARGIC, BARELY AROUSES TO SPEECH, KNOWS NAME AND BUT FALLS BACK TO SLEEP IMMEDIATELY. VSS, SINUS RHYTHM. ALLISON DRAINING DARK YELLOW URINE. BILATERAL WRIST RESTRAINTS AND DANIELLE VEST IN PLACE.
--- NOTE | 2019-09-20 12:00 | NUR ---
REASSESSMENT: PRECEDEX PLACED ON STAND BY AT 1030 TO BETTER ASSESS MENTATION. RAFA IS MORE ALERT, BUT STILL A BIT LETHARGIC REQUIRING FREQUENT ROUSING TO TAKE PO FLUIDS. VSS, SINUS RHYTHM. GOOD URINE OUTPUT. CIWA SCORE 14. DENIES PAIN. DR. CEBALLOS CAME TO ASSESS; RECOMMENDED KEEP ON CL LIQ DIET, BUT TO EMPHASIZE ENSURE CLEAR TO PROMOTE NUTRITION. ABD DISTENDED AND ROUNDED, NOT TTP, BS ACTIVE AND IS PASSING FLATUS. BILATERAL WRIST RESTRAINTS AND DANIELLE VEST IN PLACE.
--- NOTE | 2019-09-20 13:22 | NUR ---
CALLED PT'S SPOUSE TO GIVE UPDATE, TRANSFERRED CALL TO PT'S ROOM, HELD PHONE WHILE PT SPOKE TO HIM BUT SHE FELL ASLEEP DURING THE CALL.
[2019-09-20 15:27] LABS: Hematocrit 28.8 % (33.0-51.0); Hemoglobin 9.1 g/dL (11.5-16.0)
[2019-09-20 15:44] LABS: Albumin, Blood 2.6 g/dL (3.4-5.0); Anion Gap 9 mmol/L (6-16); Blood Urea Nitrogen 2 mg/dL (8-24); Bun/Creatinine Ratio 3.8 (12.0-20.0); CO2, Blood 21 mmol/L (21-32); Chloride, Blood 113 mmol/L (98-108); Creatinine, Blood 0.53 mg/dL (0.40-1.00); Glomerular Filtration Rate >60 (60-); Glucose, Blood 114 mg/dL (70-99); Phosphorus, Blood 3.3 mg/dL (2.5-4.9); Potassium, Blood 3.2 mmol/L (3.5-5.5); Sodium, Blood 143 mmol/L (136-145)
--- NOTE | 2019-09-20 18:39 | NUR ---
SHIFT SUMMARY: AWAKE AND ALERT, SLIGHTLY AGITATED AT THIS TIME. CIWA SCORED ESCALATED TO 24, GAVE LIBRIUM AND ATIVAN WITH GOOD EFFECT. HAD GOOD PO INTAKE DURING THE DAY WHILE AWAKE. TWO BM 'S TODAY, GOOD URINE OUTPUT. HAVING INTERMITTENT HALLUCINATIONS, IS REDIRECTABLE. LUNGS CLEAR, [employer] COUGH, O2 SAT > 95% RA. BILATERAL SOFT WRIST RESTRAINTS AND DANIELLE VEST IN PLACE.
[2019-09-21 03:27] LABS: BASOPHILS ABSOLUTE AUTO 0.07 K/mm3 (0.00-0.23); BASOPHILS PERCENT AUTO 1 % (0-2); EOSINOPHILS ABSOLUTE AUTO 0.23 K/mm3 (0.00-0.68); EOSINOPHILS PERCENT AUTO 3 % (0-6); Hematocrit 25.3 % (33.0-51.0); Hemoglobin 8.2 g/dL (11.5-16.0); IMMATURE GRAN ABSOLUTE AUTO 0.01 K/mm3 (0.00-0.10); IMMATURE GRAN PERCENT AUTO 0 % (0-1); LYMPHOCYTES ABSOLUTE AUTO 1.89 K/mm3 (0.84-5.20); LYMPHOCYTES PERCENT AUTO 27 % (21-46); MONOCYTES ABSOLUTE AUTO 0.79 K/mm3 (0.16-1.47); MONOCYTES PERCENT AUTO 11 % (4-13); Mean Corpuscular HGB 28.1 pg (26.0-34.0); Mean Corpuscular HGB Conc 32.4 g/dL (31.5-36.5); Mean Corpuscular Volume 87 fL (80-100); Mean Platelet Volume 10.4 fL (9.1-12.4); NEUTROPHILS ABSOLUTE AUTO 4.03 K/mm3 (1.96-9.15); NEUTROPHILS PERCENT AUTO 57 % (41-73); Platelet Count 170 K/mm3 (150-400); RDW Coefficient Variation 25.8 % (11.7-14.2); RDW Standard Deviation 77.8 fL (35.1-46.3); Red Blood Cell Count 2.92 M/mm3 (3.80-5.20); White Blood Cell Count 7.02 K/mm3 (4.00-11.30)
[2019-09-21 03:39] LABS: Albumin, Blood 2.5 g/dL (3.4-5.0); Anion Gap 7 mmol/L (6-16); Blood Urea Nitrogen 1 mg/dL (8-24); Bun/Creatinine Ratio 1.9 (12.0-20.0); CO2, Blood 23 mmol/L (21-32); Chloride, Blood 113 mmol/L (98-108); Creatinine, Blood 0.53 mg/dL (0.40-1.00); Glomerular Filtration Rate >60 (60-); Glucose, Blood 95 mg/dL (70-99); Phosphorus, Blood 3.9 mg/dL (2.5-4.9); Potassium, Blood 3.1 mmol/L (3.5-5.5); Sodium, Blood 143 mmol/L (136-145)
[2019-09-21 04:30] LABS: Magnesium, Blood 1.7 mg/dL (1.6-2.4)
--- NOTE | 2019-09-21 04:41 | NUR ---
SHIFT SUMMARY PATIENT HAS SLEPT WELL THROUGH THE NIGHT. HAVE BEEN ABLE TO TITRATE DOWN PRECEDEX TO 0.1 MCG/KG/HOUR CURRENTLY, WILL ATTEMPT TO TURN OFF LATER AND SEE WHAT HAPPENS. NEURO STATUS SEEMS IMPROVED, IS ANSWERING QUESTIONS APPROPRIATELY, NO C/O HALLUCINATIONS, ALMOST ORIENTED, OCASSIONALLY MAKES OFF THE WALL COMMENTS, LIKE "I'M GOINGING UPSTAIRS TO GO TO BED" OR "WHY AM I STILL HERE? LAST TIME I WENT HOME AND CAME BACK, I JUST GOT BACK YESTERDAY!" ASSESSMENT IS CHARTED. NO C/O PAIN. VSS. WILL CONTINUE TO MONITOR.
--- NOTE | 2019-09-21 08:03 | NUR ---
ASSUMED CARE OF PT AT 0700. REPORT FROM JEFESRON CABRERA. PT RESTING IN BED. WAKES c VERBAL STIMULI. A&OX 3. ANSWERS QUESTIONS APPROPRIATELY. FOLLOWS COMMNDS. PT DENIES HALLUCINATIONS, GONZALEZ, N/V, TREMORS. CIWA 3. PT'S ONLY COMPLAINT IS HUNGER. ASSISTED c CLEAR LIQUID DIET. TOLERATED WELL. WEAKNESS TO ALL EXTERMITIES BUT ABLE TO REPOSITION SELF IN BED. PRECEDEX ON STANDBY. KCL INFUSING. PLAN TO RECHECK 2 HOURS p INFUSION. ABD IS ROUND, DISTENDED, NON TENDER. BT X 4. LUNGS CLEAR. VSS. RESTRAINTS REMOVED AT THIS TIME. BED ALARM IN PLACE FOR PT SAFETY. WILL CONTINUE TO MONITOR.
--- NOTE | 2019-09-21 12:18 | NUR ---
09/21/19 1218 Levon Craft 3-LEAD EKG REVIEWED WITH PHYSICIAN PRIOR TO START OF PROCEDURE.PATIENT CONFIRMS NPO STATUS AND AGREES WITH SCHEDULED PROCEDURE.History, Chart, Medications and Allergies reviewed before start of procedure.O2 VIA N/C INTACT THROUGHOUT SEDATION/PROCEDURE.VITAL SIGNS STABLE.
--- NOTE | 2019-09-21 16:59 | NUR ---
SHIFT SUMMARY PT STATUS CHANGED TO MED s TELE THIS SHIFT. AWAITING ROOM ASSIGNMENT. EGD COMPLETE TODAY. BIOPSIES TAKEN ONLY. PRECEDEX D/C'D THIS SHIFT. PT ORIENTED TO PLACE, PERSON, YEAR. FOLLOWS DIRECTIONS. SLOW TO RESPOND, APPEARS GROGGY. DENIES HALLUCINATIONS, GONZALEZ, N/V. NO TREMORS NOTED. PT INTERMITTANTLY IMPULSIVE, WHEN REPOSITIONING IN BED, APPEARS TO BE CLIMBING OUT OF BED, EASILY REDIRECTABLE. BED ALARM PLACED FOR PATIENT SAFETY. CIWA 3-8 THIS SHIFT. PT RESTLESS MOST OF SHIFT. VSS. WILL MONITOR UNTIL REPORT TO ONCOMING NURSE.
--- NOTE | 2019-09-21 19:22 | NUR ---
INITAL ASSESSMENT PT IS ALERT IN ROOM. SHE IS ORIENTED TO SELF ONLY. HER SPEECH IS VERY QUIET AND MUMMBLED. SHE IS COOPERITVE WITH HER CARE. HELPED HER AT THIS TIME STAND AND ATTEMPT TO USE BEDSIDE COMMODE. SHE DID NOT HAVE ANY STOOL AND WAS ABLE TO GET BACK TO BED WITH NO ISSUES. SHE DOES HAVE A DANIELLE VEST IN PLACE. SHE IS RESTLESS IN BED. VITALS ARE STABLE AT THIS TIME. SHE DOES HAVE ONE IV THAT IS SL. PT IS ABLE TO TOLERATE ICE WITH NO CHOKING ISSUES. WILL CON'T TO MONITOR AND KEEP PT SAFE T/O REMANDER OF SHIFT.
--- NOTE | 2019-09-21 23:40 | NUR ---
UPDATE ASSESSMENT PT CON'T TO BE STABLE AND COOPERATIVE WITH CARE. SHE DOES PULL AT HER CATH. THIS NURSE CON'T TO REMIND HER TO NOT PULL ON HER LINES. SHE IS COOPERTIVE WITH HER CARE. SHE IS ABLE TO DRINK WATER AND MILK WITH NO CHOKING. SHE IS NOT USING CALL LIGHT AT THIS TIME. IT IS IN REACH. SHE HAS BEEN USING HER GLASSES AT TIMES T/O SHIFT. WILL CON'T TO KEEP PT SAFE.
[2019-09-22 03:30] LABS: Hematocrit 27.6 % (33.0-51.0); Hemoglobin 8.6 g/dL (11.5-16.0)
[2019-09-22 03:46] LABS: Albumin, Blood 2.6 g/dL (3.4-5.0); Anion Gap 6 mmol/L (6-16); Blood Urea Nitrogen 2 mg/dL (8-24); Bun/Creatinine Ratio 4.3 (12.0-20.0); CO2, Blood 26 mmol/L (21-32); Calcium, Blood 8.4 mg/dL (8.5-10.1); Chloride, Blood 111 mmol/L (98-108); Creatinine, Blood 0.46 mg/dL (0.40-1.00); Glomerular Filtration Rate >60 (60-); Glucose, Blood 94 mg/dL (70-99); Phosphorus, Blood 3.6 mg/dL (2.5-4.9); Potassium, Blood 3.2 mmol/L (3.5-5.5); Sodium, Blood 143 mmol/L (136-145)
--- NOTE | 2019-09-22 06:05 | NUR ---
SHIFT ASSESSMENT PT IS ALERT THIS AM. SHE SEEMS TO BE A BIT MORE AGGITATED THIS AM. SHE DID NOT WANT TO HAVE LIBRIUM THIS AM. STATES IT MAKES HER TO GROGGY. SHE IS COOPERTIVE WITH HER CARE. SHE HAS NOT USED THE CALL LIGHT AT ALL THIS SHIFT. THIS RN CON'T TO RE-VISIT THE USAGE OF CALL LIGHT. DANIELLE VEST CON'T TO BE IN PLACE DUE TO PT ATTEMPTING TO GET OUT OF BED WITHOUT CALLING FOR HELP. VITALS ARE STABLE THIS AM. WILL CON'T TO MONITOR AND KEEP PT SAFE TILL REPORT TO ONCOMING RN.
--- NOTE | 2019-09-22 08:45 | NUR ---
ASSUMED CARE RECIEVED REPORT FROM DEBORAH RAMIREZ. PT IS IN BARIATRIC BED. SHE IS ON 5L NC, SAT'ING LOW-MID 90'S. SHE HAS A PATENT ALLISON, DRAINING URINE. BED IS LOW AND LOCKED. SHE IS ALERT AND ORIENTED X 4. CALL LIGHT WITHIN REACH.
--- NOTE | 2019-09-22 14:10 | NUR ---
DRESSING COMING LOOSE, REINFORCED DRESSING, IV INTACT.
--- NOTE | 2019-09-22 18:44 | NUR ---
ASSUMED CARE OF PATIENT AT 1410. PT. WITHOUT ANY PROBLEMS T/O THIS SHIFT. VERY PLEASANT AND COOPERATIVE. DID REFUSE HER DINNER, SAID SHE WASN'T HUNGRY THAT SHE JUST ATE, TRIED TO CONVINCE HER TO EAT BUT SHE REFUYSED.
[2019-09-23 04:02] LABS: BASOPHILS PERCENT AUTO 1 % (0-2); EOSINOPHILS ABSOLUTE AUTO 0.42 K/mm3 (0.00-0.68); EOSINOPHILS PERCENT AUTO 5 % (0-6); Hematocrit 27.2 % (33.0-51.0); Hemoglobin 8.6 g/dL (11.5-16.0); IMMATURE GRAN ABSOLUTE AUTO 0.02 K/mm3 (0.00-0.10); IMMATURE GRAN PERCENT AUTO 0 % (0-1); LYMPHOCYTES ABSOLUTE AUTO 1.94 K/mm3 (0.84-5.20); LYMPHOCYTES PERCENT AUTO 25 % (21-46); MONOCYTES ABSOLUTE AUTO 0.91 K/mm3 (0.16-1.47); MONOCYTES PERCENT AUTO 12 % (4-13); Mean Corpuscular HGB 27.4 pg (26.0-34.0); Mean Corpuscular HGB Conc 31.6 g/dL (31.5-36.5); Mean Corpuscular Volume 87 fL (80-100); Mean Platelet Volume 9.8 fL (9.1-12.4); NEUTROPHILS PERCENT AUTO 57 % (41-73); Platelet Count 183 K/mm3 (150-400); RDW Coefficient Variation 26.5 % (11.7-14.2); RDW Standard Deviation 77.3 fL (35.1-46.3); Red Blood Cell Count 3.14 M/mm3 (3.80-5.20); White Blood Cell Count 7.89 K/mm3 (4.00-11.30)
[2019-09-23 04:23] LABS: Anion Gap 6 mmol/L (6-16); Blood Urea Nitrogen 3 mg/dL (8-24); Bun/Creatinine Ratio 7.1 (12.0-20.0); CO2, Blood 28 mmol/L (21-32); Calcium, Blood 8.5 mg/dL (8.5-10.1); Chloride, Blood 108 mmol/L (98-108); Creatinine, Blood 0.43 mg/dL (0.40-1.00); Glomerular Filtration Rate >60 (60-); Glucose, Blood 85 mg/dL (70-99); Magnesium, Blood 1.7 mg/dL (1.6-2.4); Potassium, Blood 2.9 mmol/L (3.5-5.5); Sodium, Blood 142 mmol/L (136-145)
--- NOTE | 2019-09-23 05:30 | NUR ---
09/23/19 K= 2.9 AND RN NOTIFIED ON-CALL MD,DR HERNANDEZ, AT 0512 AND SHE STATES SHE WILL ORDER POTASSIUM FOR THIS PT. VITALS STABLE EXCEPT FOR LOW GRADE TEMP THIS AM. PT DID HAVE SOME HALLUCINTATIONS ABOUT 0100. SHE THOUGHT SHE SAW HER GRAND CHILDREN IN THE ROOM. SEE MAR FOR MED GIVEN. PT DID SLEEP AFTER MED WAS GIVEN.
--- NOTE | 2019-09-23 17:30 | NUR ---
PT. SITTING IN BED COMBING HAIR, REQUESTED A MIRROR SO SHE COULD PUT HER MAKE-UP ON CAUSE SHE HAD TO BE TO WORK AT 6:00.
--- NOTE | 2019-09-23 17:45 | NUR ---
PT. SITTING IN BED EATING DINNER. TOOK A SHOWER TODAY WITH ASIST OF [employer]AR[employer]. PT. STILL UNSTEADY ON FEET AND DOES NOT USE THE CALL LIGHT. BED ALARM KEPT ON AT ALL TIMES. PT. IS CONFUSED MOST OF THE TIME, KNOWS WHERE SHE IS BUT APPEARS TO LOSE TOUCH OF REALITY. PT. STILL HAVING PROBLEMS GETTING HER HANDS TO DO WHAT SHE WANTS.
[2019-09-24 04:17] LABS: Hematocrit 28.2 % (33.0-51.0); Hemoglobin 8.9 g/dL (11.5-16.0)
--- NOTE | 2019-09-24 04:34 | NUR ---
SUMMARY PT HAD NO ISSUES NOTED. PT IS COOPERATIVE. PT WAS IMPULSIVE AT BEGINNING OF SHIFT. PT WAS TRYING TO GET OUT OF BED W/ OUT HELP. T/O SHIFT PT HAS BEEN USING CALL LIGHT APPROPIATELY. PT CALLED AND WOULD LIKE PROVIDER TO CALL HIM AND GIVE A UPDATE. STATED PT'S WORK NEEDS SOME TYPE OF SICK NOTE. PT HAS SLEPT WELL T/O SHIFT. PT CURRENTLY AWAKE AND IN NO DISTRESS. CALL LIGHT IN REACH AND BED ALARM ON.
[2019-09-24 04:40] LABS: Anion Gap 7 mmol/L (6-16); Blood Urea Nitrogen 6 mg/dL (8-24); CO2, Blood 27 mmol/L (21-32); Calcium, Blood 8.7 mg/dL (8.5-10.1); Chloride, Blood 107 mmol/L (98-108); Creatinine, Blood 0.46 mg/dL (0.40-1.00); Glomerular Filtration Rate >60 (60-); Glucose, Blood 90 mg/dL (70-99); Magnesium, Blood 1.8 mg/dL (1.6-2.4); Potassium, Blood 3.8 mmol/L (3.5-5.5); Sodium, Blood 141 mmol/L (136-145)
[2019-09-24] MEDS ORDERED: FOLI1 PO (10:36)
[2019-09-24] MEDS ORDERED: B-1100 M1 PO (10:37)
[2019-09-24] MEDS ORDERED: LACT10SY PO (10:38)
--- NOTE | 2019-09-24 13:31 | NUR ---
SUMMARY/DISCHARGE PT BEING DISCHARGED TO HOME, PT VERBALIZED UNDERSTANDING OF DISCHARGE MEDS, PT STATES SHE WILL MAKE HER OWN FOLLOW UP APPOINTMENT, PT DOES NOT HAVE ANY HEALTH INSURANCE, FINANCIAL SHANDA APPLICATION GIVEN TO THE PT, SPOUSE CALLED AND HE WILL BE HERE IN 15 MINUTES, SECURITY NOTIFIED BECAUSE PT HAS SOMETHING IN THE SAFE TO SOLAR THERMAL TECHNICIAN
--- NOTE | 2019-09-24 14:45 | NUR ---
PT TAKEN OUT SAFELY VIA WHEELCHAIR AND DISCHARGE INSTRUCTIONS GIVEN TO THE SPOUSE
== END 2019-09-24 13:49 | disposition home or self-care (01) | DRG 812 ==
LOC: ER 19:12 → MEDS 19:13 → PCU 09-14 10:04 → ICUE 09-14 15:49 → PCU 09-14 15:50 → ICUE 09-17 18:37 → ICUW 09-21 11:30 → MEDS 09-22 16:14 → ENPENDDIS 09-24 10:41 → MEDS 09-24 13:49
PROVIDERS: Emergency Medicine; Family Medicine; Internal Medicine; Internal Medicine Gastroenterology; ADMIT Internal Medicine
PROC: 30233N1 Transfusion of Nonautologous Red Blood Cells into Peripheral Vein, Percutaneous Approach (ICD-10-PCS; principal; 2019-09-14)
PROC: 0DD78ZX Extraction of Stomach, Pylorus, Via Natural or Artificial Opening Endoscopic, Diagnostic (ICD-10-PCS; 2019-09-21)
PROC: 0DB68ZZ Excision of Stomach, Via Natural or Artificial Opening Endoscopic (ICD-10-PCS; 2019-09-21 11:30)
DX: D50.9 Iron deficiency anemia, unspecified (principal); F10.239 Alcohol dependence with withdrawal, unspecified; E72.20 Disorder of urea cycle metabolism, unspecified; R44.3 Hallucinations, unspecified; G51.8 Other disorders of facial nerve; F17.210 Nicotine dependence, cigarettes, uncomplicated; Z68.31 Body mass index [BMI] 31.0-31.9, adult; E66.3 Overweight; E87.6 Hypokalemia; K72.90 Hepatic failure, unspecified without coma; K25.9 Gastric ulcer, unspecified as acute or chronic, without hemorrhage or perforation; E83.42 Hypomagnesemia; Y90.4 Blood alcohol level of 80-99 mg/100 ml
CPT/HCPCS: 36415; 36430; 51701; 51702; 70450; 71045; 80048; 80053; 80069; 81003; 82103; 82104; 82105; 82140; 82272; 82274; 82390; 82607; 82728; 82746; 82947; 83516; 83540; 83550; 83735; 83993; 84132; 84443; 85014; 85018; 85025; 85379; 85610; 85730; 86038; 86140; 86160; 86225; 86235; 86317; 86704; 86708; 86803; 86850; 86900; 86901; 86923; 87340; 88305; 88341; 88342; 93005; 93010; 94640; 94760; 96365; 96366; 96367; 96375; 97116; 97162; 97165; 97530; 99285-25; A9270; C9113; G0378; G0480; J2060; J2405; J2704; J2916; J3411; J3475; J3480; J7030; J7040; J7042; J7060; P9016

== ENCOUNTER 2020-04-01 11:07 | Inpatient (IN) | payer OTHER ==
[~2020-04-01] VITALS: Ht 152.4 cm; Wt 81.1 kg
[~2020-04-01 11:07] MED LIST changes: +B-1100 M1 PO; +BUPROPION HCL75 M1 PO; +FOLI1 PO; +LACT10SY PO
[2020-04-01 12:25] LABS: Alanine Aminotransfer (ALT/SGP 50 U/L (12-78); Albumin, Blood 3.4 g/dL (3.4-5.0); Albumin/Globulin Ratio 0.8 (0.8-1.8); Alk Phos 107 U/L (50-136); Anion Gap 14 mmol/L (6-16); Aspartate Aminotrans (AST/SGOT 65 U/L (12-37); Bilirubin, Total 1.6 mg/dL (0.1-1.0); Blood Urea Nitrogen 42 mg/dL (8-24); Bun/Creatinine Ratio 36.8 (12.0-20.0); CO2, Blood 16 mmol/L (21-32); Calcium, Blood 9.1 mg/dL (8.5-10.1); Chloride, Blood 100 mmol/L (98-108); Creatinine, Blood 1.14 mg/dL (0.40-1.00); Globulin, Blood 4.4 g/dL (2.2-4.0); Glomerular Filtration Rate 52 (60-); Glucose, Blood 93 mg/dL (70-99); Potassium, Blood 4.9 mmol/L (3.5-5.5); Sodium, Blood 130 mmol/L (136-145); Total Protein, Blood 7.8 g/dL (6.4-8.2); Troponin I <0.015 ng/mL (0.000-0.040)
[2020-04-01 12:33] LABS: Magnesium, Blood 2.4 mg/dL (1.6-2.4); Phosphorus, Blood 3.7 mg/dL (2.5-4.9)
[2020-04-01 12:40] LABS: International Normalized Ratio 1.45; Prothrombin Time Results 15.2 Sec (9.7-11.5)
[2020-04-01 13:41] LABS: BASOPHILS ABSOLUTE AUTO 0.01 K/mm3 (0.00-0.23); BASOPHILS PERCENT AUTO 0 % (0-2); EOSINOPHILS ABSOLUTE AUTO 0.07 K/mm3 (0.00-0.68); EOSINOPHILS PERCENT AUTO 1 % (0-6); IMMATURE GRAN ABSOLUTE AUTO 0.04 K/mm3 (0.00-0.10); IMMATURE GRAN PERCENT AUTO 1 % (0-1); LYMPHOCYTES ABSOLUTE AUTO 1.05 K/mm3 (0.84-5.20); LYMPHOCYTES PERCENT AUTO 14 % (21-46); MONOCYTES ABSOLUTE AUTO 0.78 K/mm3 (0.16-1.47); MONOCYTES PERCENT AUTO 11 % (4-13); Mean Corpuscular HGB 18.1 pg (26.0-34.0); Mean Corpuscular HGB Conc 26.6 g/dL (31.5-36.5); Mean Corpuscular Volume 68 fL (80-100); Mean Platelet Volume 10.4 fL (9.1-12.4); NEUTROPHILS ABSOLUTE AUTO 5.42 K/mm3 (1.96-9.15); NEUTROPHILS PERCENT AUTO 74 % (41-73); NRBC ABSOLUTE 0.23 K/mm3 (0.00-0.02); NRBC Auto 3.1 /100 WBC (0.0-0.2); Platelet Count 334 K/mm3 (150-400); RDW Coefficient Variation 18.8 % (11.7-14.2); RDW Standard Deviation 44.5 fL (35.1-46.3); Red Blood Cell Count 1.82 M/mm3 (3.80-5.20); White Blood Cell Count 7.37 K/mm3 (4.00-11.30)
[2020-04-01 13:46] LABS: Hematocrit 12.4 % (33.0-51.0); Hemoglobin 3.3 g/dL (11.5-16.0)
[2020-04-01] MEDS ORDERED: NEURONTIN400 MG PO (16:09)
[2020-04-01 17:12] LABS: Percent Saturation 2.1 % (15.0-50.0)
[2020-04-01 19:14] LABS: PCO2 Arterial 26.2 mmHg (35-45); PO2 Arterial 81.5 mmHg (80-100); pH Blood Arterial 7.45 (7.35-7.45)
--- NOTE | 2020-04-01 21:22 | NUR ---
2106 2ND RBC UNIT TRANSFUSION STARTED. LUNGS CLEAR, PT SOB AT BASELINE. HIGH 90% ON RM AIR. RESTING AND IN NO DISTRESS.
[2020-04-02 02:03] LABS: BASOPHILS ABSOLUTE AUTO 0.02 K/mm3 (0.00-0.23); BASOPHILS PERCENT AUTO 0 % (0-2); EOSINOPHILS ABSOLUTE AUTO 0.18 K/mm3 (0.00-0.68); EOSINOPHILS PERCENT AUTO 2 % (0-6); IMMATURE GRAN ABSOLUTE AUTO 0.04 K/mm3 (0.00-0.10); IMMATURE GRAN PERCENT AUTO 1 % (0-1); LYMPHOCYTES ABSOLUTE AUTO 1.24 K/mm3 (0.84-5.20); LYMPHOCYTES PERCENT AUTO 16 % (21-46); MONOCYTES ABSOLUTE AUTO 0.77 K/mm3 (0.16-1.47); MONOCYTES PERCENT AUTO 10 % (4-13); Mean Corpuscular HGB 20.6 pg (26.0-34.0); Mean Corpuscular HGB Conc 29.3 g/dL (31.5-36.5); Mean Corpuscular Volume 70 fL (80-100); Mean Platelet Volume 9.9 fL (9.1-12.4); NEUTROPHILS ABSOLUTE AUTO 5.44 K/mm3 (1.96-9.15); NEUTROPHILS PERCENT AUTO 71 % (41-73); NRBC ABSOLUTE 0.22 K/mm3 (0.00-0.02); NRBC Auto 2.9 /100 WBC (0.0-0.2); Platelet Count 310 K/mm3 (150-400); RDW Coefficient Variation 20.6 % (11.7-14.2); RDW Standard Deviation 51.3 fL (35.1-46.3); Red Blood Cell Count 2.23 M/mm3 (3.80-5.20); White Blood Cell Count 7.69 K/mm3 (4.00-11.30)
[2020-04-02 02:05] LABS: Hematocrit 15.7 % (33.0-51.0); Hemoglobin 4.6 g/dL (11.5-16.0)
[2020-04-02 02:17] LABS: International Normalized Ratio 1.39; Prothrombin Time Results 14.6 Sec (9.7-11.5)
[2020-04-02 02:29] LABS: Alanine Aminotransfer (ALT/SGP 46 U/L (12-78); Albumin, Blood 3.3 g/dL (3.4-5.0); Albumin/Globulin Ratio 0.8 (0.8-1.8); Alk Phos 106 U/L (50-136); Anion Gap 11 mmol/L (6-16); Aspartate Aminotrans (AST/SGOT 60 U/L (12-37); Bilirubin, Total 5.8 mg/dL (0.1-1.0); Blood Urea Nitrogen 40 mg/dL (8-24); Bun/Creatinine Ratio 34.8 (12.0-20.0); CO2, Blood 20 mmol/L (21-32); Calcium, Blood 8.5 mg/dL (8.5-10.1); Chloride, Blood 100 mmol/L (98-108); Creatinine, Blood 1.15 mg/dL (0.40-1.00); Globulin, Blood 4.1 g/dL (2.2-4.0); Glomerular Filtration Rate 52 (60-); Glucose, Blood 98 mg/dL (70-99); Magnesium, Blood 2.2 mg/dL (1.6-2.4); Phosphorus, Blood 3.6 mg/dL (2.5-4.9); Potassium, Blood 4.1 mmol/L (3.5-5.5); Sodium, Blood 131 mmol/L (136-145); Total Protein, Blood 7.4 g/dL (6.4-8.2); Uric Acid, Blood 6.2 mg/dL (2.6-6.0)
--- NOTE | 2020-04-02 05:00 | NUR ---
shift supervisor summary pt a/o x4 with forgetfulness. bed alarm placed. pt recieved 1 unit of rbc towards beginning of shift. after notifying hospitalist dr. casillas of recent H&H labs, he ordered another unit of rbc. this is currently runnning right now. lungs has been clear with each assessment during blood transfusion. pt appears tired. slept on and off tonight. currently on 2L o2 via nc maintaining sat at 92% and above. gets up with standy assist with fww to bedside commode. 24 hour urine has been started overnight per orders. will continue to monitor.
[2020-04-02 08:06] LABS: BASOPHILS ABSOLUTE AUTO 0.03 K/mm3 (0.00-0.23); BASOPHILS PERCENT AUTO 0 % (0-2); EOSINOPHILS ABSOLUTE AUTO 0.27 K/mm3 (0.00-0.68); EOSINOPHILS PERCENT AUTO 4 % (0-6); IMMATURE GRAN ABSOLUTE AUTO 0.09 K/mm3 (0.00-0.10); IMMATURE GRAN PERCENT AUTO 1 % (0-1); LYMPHOCYTES ABSOLUTE AUTO 0.85 K/mm3 (0.84-5.20); LYMPHOCYTES PERCENT AUTO 11 % (21-46); MONOCYTES ABSOLUTE AUTO 0.65 K/mm3 (0.16-1.47); MONOCYTES PERCENT AUTO 9 % (4-13); Mean Corpuscular HGB 21.9 pg (26.0-34.0); Mean Corpuscular HGB Conc 30.1 g/dL (31.5-36.5); Mean Corpuscular Volume 73 fL (80-100); NEUTROPHILS ABSOLUTE AUTO 5.68 K/mm3 (1.96-9.15); NEUTROPHILS PERCENT AUTO 75 % (41-73); NRBC ABSOLUTE 0.28 K/mm3 (0.00-0.02); NRBC Auto 3.7 /100 WBC (0.0-0.2); Platelet Count 294 K/mm3 (150-400); RDW Coefficient Variation 20.3 % (11.7-14.2); RDW Standard Deviation 51.9 fL (35.1-46.3); Red Blood Cell Count 2.51 M/mm3 (3.80-5.20); White Blood Cell Count 7.57 K/mm3 (4.00-11.30)
[2020-04-02 08:13] LABS: Hematocrit 18.3 % (33.0-51.0); Hemoglobin 5.5 g/dL (11.5-16.0)
[2020-04-02 10:12] LABS: HBSAG SCREEN Negative (Negative); HEP A AB, IGM Negative (Negative); HEP B CORE AB, TOT Negative (Negative); HEP C VIRUS AB <0.1 (0.0-0.9)
--- NOTE | 2020-04-02 10:57 | NUR ---
24 HOUR URINE COLLECTION STARTED AT 0930.
[2020-04-02 16:15] LABS: Hematocrit 21.3 % (33.0-51.0); Hemoglobin 6.7 g/dL (11.5-16.0); Mean Corpuscular HGB 22.9 pg (26.0-34.0); Mean Corpuscular HGB Conc 31.5 g/dL (31.5-36.5); Mean Corpuscular Volume 73 fL (80-100); Mean Platelet Volume 9.7 fL (9.1-12.4); NRBC ABSOLUTE 0.34 K/mm3 (0.00-0.02); NRBC Auto 3.9 /100 WBC (0.0-0.2); Platelet Count 282 K/mm3 (150-400); RDW Coefficient Variation 20.8 % (11.7-14.2); RDW Standard Deviation 53.1 fL (35.1-46.3); Red Blood Cell Count 2.93 M/mm3 (3.80-5.20); White Blood Cell Count 8.78 K/mm3 (4.00-11.30)
--- NOTE | 2020-04-02 17:44 | NUR ---
SHIFT SUMMARY; A/A/OX4 DURING SHIFT. SBA TO COMMODE SEVERAL TIMES DURING SHIFT. 24 HOUR URINE COLLECTION IN PROGRESS STARTING AT 0930. 2 UNITS PRBC INFUSED DURING SHIFT WITH 40MG LASIX IV BETWEEN UNITS PER ORDER FROM DR. BALDERAS. L/S REMAIN CLEAR. HG IMPROVED TO 6.7. PER DR. CABRERA ADDITIONAL UNITS WILL BE INFUSED IN AM PT HAS RECIEVED 5 UNITS IN LAST 24 HOURS. VSS, REMAINS ON RA. ABDOMEN REMAINS ROUND AND DISTENDED BUT SOFT. US YESTERDAY SHOWED MINIMAL FLUID, WILL CONTINUE TO MONITOR AND TREAT UNTIL CHANGE OF SHIFT.
--- NOTE | 2020-04-03 03:50 | NUR ---
SHIFT SUMMARY PT A/OX4 WITH VSS. NO ACUTE CHANGES NOTED THIS SHIFT. 24HR URINE IN PROGRESS, COLLECTED URINE IS ON ICE. PT MAINTAINING FLUID RESTRICTION. REPORTS FEELING BETTER AFTER TRANSFUSIONS DURING DAYSHIFT. MEDICATED X1 FOR GONZALEZ, REPORTS FREQUENT GONZALEZ'S AT HOME. AMB TO BATHROOM WITH SBA, DENIES FEELING DIZZY OR HAVING SOB. SHELIA PO INTAKE. PT CURRENTLY RESTING IN BED WITH CALL LIGHT IN REACH AND BED IN LOWEST POSITION. AWAITING MORNING LABS. WILL CONT TO MONITOR PT AND GIVE SHIFT CHANGE REPORT TO ONCOMING RN.
[2020-04-03 04:45] LABS: BASOPHILS ABSOLUTE AUTO 0.05 K/mm3 (0.00-0.23); BASOPHILS PERCENT AUTO 1 % (0-2); EOSINOPHILS ABSOLUTE AUTO 0.25 K/mm3 (0.00-0.68); EOSINOPHILS PERCENT AUTO 3 % (0-6); Hematocrit 20.1 % (33.0-51.0); Hemoglobin 6.5 g/dL (11.5-16.0); IMMATURE GRAN ABSOLUTE AUTO 0.15 K/mm3 (0.00-0.10); IMMATURE GRAN PERCENT AUTO 2 % (0-1); LYMPHOCYTES ABSOLUTE AUTO 0.99 K/mm3 (0.84-5.20); LYMPHOCYTES PERCENT AUTO 11 % (21-46); MONOCYTES ABSOLUTE AUTO 0.74 K/mm3 (0.16-1.47); MONOCYTES PERCENT AUTO 8 % (4-13); Mean Corpuscular HGB 23.5 pg (26.0-34.0); Mean Corpuscular HGB Conc 32.3 g/dL (31.5-36.5); Mean Corpuscular Volume 73 fL (80-100); Mean Platelet Volume 9.7 fL (9.1-12.4); NEUTROPHILS ABSOLUTE AUTO 7.23 K/mm3 (1.96-9.15); NEUTROPHILS PERCENT AUTO 77 % (41-73); NRBC ABSOLUTE 0.34 K/mm3 (0.00-0.02); NRBC Auto 3.6 /100 WBC (0.0-0.2); Platelet Count 260 K/mm3 (150-400); RDW Coefficient Variation 20.9 % (11.7-14.2); RDW Standard Deviation 53.3 fL (35.1-46.3); Red Blood Cell Count 2.77 M/mm3 (3.80-5.20); White Blood Cell Count 9.41 K/mm3 (4.00-11.30)
[2020-04-03 05:16] LABS: Alanine Aminotransfer (ALT/SGP 51 U/L (12-78); Albumin, Blood 2.9 g/dL (3.4-5.0); Albumin/Globulin Ratio 0.7 (0.8-1.8); Alk Phos 100 U/L (50-136); Anion Gap 11 mmol/L (6-16); Aspartate Aminotrans (AST/SGOT 69 U/L (12-37); Bilirubin, Direct 2.2 mg/dL (0.0-0.3); Bilirubin, Indirect 2.9 mg/dL (0.1-0.7); Bilirubin, Total 5.1 mg/dL (0.1-1.0); Blood Urea Nitrogen 25 mg/dL (8-24); Bun/Creatinine Ratio 32.6 (12.0-20.0); CO2, Blood 25 mmol/L (21-32); Calcium, Blood 8.4 mg/dL (8.5-10.1); Chloride, Blood 101 mmol/L (98-108); Creatinine, Blood 0.77 mg/dL (0.40-1.00); Glomerular Filtration Rate >60 (60-); Glucose, Blood 93 mg/dL (70-99); Magnesium, Blood 1.7 mg/dL (1.6-2.4); Phosphorus, Blood 2.3 mg/dL (2.5-4.9); Potassium, Blood 2.6 mmol/L (3.5-5.5); Sodium, Blood 137 mmol/L (136-145); Total Protein, Blood 6.9 g/dL (6.4-8.2)
--- NOTE | 2020-04-03 07:08 | NUR ---
DR. BALDERAS ROUNDING AT THIS TIME. NEW ORDER FOR 25MG PO ALDACTONE QD. WILL PUT IN ORDER AND NOTIFY DAY RN.
--- NOTE | 2020-04-03 07:10 | NUR ---
Patient GAVE nursing project coordinator Handy Bell permission to give care 03 Apr 2020.
--- NOTE | 2020-04-03 07:25 | NUR ---
SHIFT CHANGE REPORT GIVEN TO DAY RNTAVON. DAY NURSE AGREED TO GIVE NEW MEDICATION ORDERS.
--- NOTE | 2020-04-03 07:41 | NUR ---
pt sitting up in bed watching tv, a/ox3, a bit slow, cooperative with care, seems in good spirits, lungs are clear a bit dim in bases, resp even and unlabord, no cough noted or reported, on r/a, hrr, tele in place running sr per monitor, see strip, +1, edema noted to b/l le ppp+2, cap refill <3sec, vs stable, afebrile, iv sites are clear and patent, infusing k+ as ordered, to rac and rfa, btx4, abd distended, voids without diff, skin has some scabs/sores to left head and neck, hair is shaved in a small area, sba to arabella angelo perla, call light in reach.
[2020-04-03 10:17] LABS: Protein, Urine Quantitative 7.1 mg/dL (0.0-11.9)
--- NOTE | 2020-04-03 11:16 | NUR ---
STARTED TRANSFUSION AFTER OBTAINING V.S. NEW IV WAS OBTAINED TO LEFT FA, 20G, PLACED BY STUDENT RN, X1 ATTEMPT, PT TOLERATED WELL, GOOD BLOOD RETURN, WILL MONITOR V.S. PROTOCOL. CALL LIGHT IN REACH.
--- NOTE | 2020-04-03 16:49 | NUR ---
pt has been changed to medical floor, with tele, report was given to Roxanna CABRERA, she was transferred via wheelchair with all her belongings.
--- NOTE | 2020-04-03 18:44 | NUR ---
SHIFT SUMMARY PCU TRANSFER THIS AFTERNOON. PATIENT DENIES PAIN, NAUSEA, AND SHORTNESS OF BREATH. UP SBA FOR LINE MANAGEMENT. BLOOD ADMINISTRATION STARTED. GOOD APPETITE, COOPERATIVE WITH CARE.
[2020-04-03 23:56] LABS: Hematocrit 29.1 % (33.0-51.0); Hemoglobin 9.2 g/dL (11.5-16.0); Mean Corpuscular HGB 24.1 pg (26.0-34.0); Mean Corpuscular HGB Conc 31.6 g/dL (31.5-36.5); Mean Corpuscular Volume 76 fL (80-100); Mean Platelet Volume 9.6 fL (9.1-12.4); NRBC ABSOLUTE 0.76 K/mm3 (0.00-0.02); NRBC Auto 7.7 /100 WBC (0.0-0.2); Platelet Count 266 K/mm3 (150-400); RDW Coefficient Variation 21.5 % (11.7-14.2); RDW Standard Deviation 55.9 fL (35.1-46.3); Red Blood Cell Count 3.81 M/mm3 (3.80-5.20); White Blood Cell Count 9.84 K/mm3 (4.00-11.30)
--- NOTE | 2020-04-04 04:27 | NUR ---
SHIFT SUMMARY NO ACUTE CHANGES THIS SHIFT, STATES SHE "IS FEELING MUCH BETTER", SHOWERED INDEP, MEDICATED 1X FOR LEG PAIN & ANXIETY PER MAR, NO OTHER C/O ANY KIND, PT BEDRESTING AT THIS TIME, CALL LIGHT IN REACH, WILL CONT TO MONITOR UNTIL REPORT GIVEN TO DAY RN.
[2020-04-04 04:49] LABS: BASOPHILS ABSOLUTE AUTO 0.08 K/mm3 (0.00-0.23); BASOPHILS PERCENT AUTO 1 % (0-2); EOSINOPHILS ABSOLUTE AUTO 0.31 K/mm3 (0.00-0.68); EOSINOPHILS PERCENT AUTO 3 % (0-6); Hematocrit 26.7 % (33.0-51.0); Hemoglobin 8.5 g/dL (11.5-16.0); IMMATURE GRAN ABSOLUTE AUTO 0.25 K/mm3 (0.00-0.10); IMMATURE GRAN PERCENT AUTO 3 % (0-1); LYMPHOCYTES PERCENT AUTO 14 % (21-46); MONOCYTES ABSOLUTE AUTO 0.86 K/mm3 (0.16-1.47); MONOCYTES PERCENT AUTO 9 % (4-13); Mean Corpuscular HGB 24.5 pg (26.0-34.0); Mean Corpuscular HGB Conc 31.8 g/dL (31.5-36.5); Mean Corpuscular Volume 77 fL (80-100); Mean Platelet Volume 9.2 fL (9.1-12.4); NEUTROPHILS ABSOLUTE AUTO 6.81 K/mm3 (1.96-9.15); NEUTROPHILS PERCENT AUTO 71 % (41-73); NRBC ABSOLUTE 0.67 K/mm3 (0.00-0.02); Platelet Count 248 K/mm3 (150-400); RDW Coefficient Variation 21.7 % (11.7-14.2); RDW Standard Deviation 56.3 fL (35.1-46.3); Red Blood Cell Count 3.47 M/mm3 (3.80-5.20); White Blood Cell Count 9.61 K/mm3 (4.00-11.30)
[2020-04-04 05:04] LABS: Alanine Aminotransfer (ALT/SGP 54 U/L (12-78); Albumin, Blood 2.9 g/dL (3.4-5.0); Albumin/Globulin Ratio 0.7 (0.8-1.8); Alk Phos 105 U/L (50-136); Anion Gap 8 mmol/L (6-16); Aspartate Aminotrans (AST/SGOT 84 U/L (12-37); Bilirubin, Direct 1.6 mg/dL (0.0-0.3); Bilirubin, Indirect 3.5 mg/dL (0.1-0.7); Bilirubin, Total 5.1 mg/dL (0.1-1.0); Blood Urea Nitrogen 13 mg/dL (8-24); Bun/Creatinine Ratio 21.9 (12.0-20.0); CO2, Blood 28 mmol/L (21-32); Calcium, Blood 8.3 mg/dL (8.5-10.1); Chloride, Blood 102 mmol/L (98-108); Creatinine, Blood 0.59 mg/dL (0.40-1.00); Globulin, Blood 3.9 g/dL (2.2-4.0); Glomerular Filtration Rate >60 (60-); Glucose, Blood 90 mg/dL (70-99); Magnesium, Blood 1.5 mg/dL (1.6-2.4); Phosphorus, Blood 2.3 mg/dL (2.5-4.9); Potassium, Blood 3.1 mmol/L (3.5-5.5); Sodium, Blood 138 mmol/L (136-145); Total Protein, Blood 6.8 g/dL (6.4-8.2)
[2020-04-04] MEDS ORDERED: POTCHL20ER PO (14:01)
--- NOTE | 2020-04-04 16:41 | NUR ---
SHIFT SUMMARY PT VERY SLEEPY TODAY; BUT AROUSABLE UPON VERBAL STIMULI. PT ON NSR @80S. NO C.O PAIN, N&V. PT WANT CONFIDENTIAL LIFTED TO ONLY DAUGHTER ON LIST OF WHO CAN HAVE ACCESS TO HER INFO. POTASSIUM IS 3.1 AND PHOSPHATE IS 1.5 THIS AM; MEDICATIONS GIVEN PER DR ORDER. VSS. BED IS IN THE LOWEST POSITION, CALL LIGHTS WITHIN REACH.
[2020-04-05 05:08] LABS: BASOPHILS ABSOLUTE AUTO 0.08 K/mm3 (0.00-0.23); BASOPHILS PERCENT AUTO 1 % (0-2); EOSINOPHILS ABSOLUTE AUTO 0.38 K/mm3 (0.00-0.68); EOSINOPHILS PERCENT AUTO 5 % (0-6); Hematocrit 29.6 % (33.0-51.0); Hemoglobin 8.9 g/dL (11.5-16.0); IMMATURE GRAN PERCENT AUTO 3 % (0-1); LYMPHOCYTES ABSOLUTE AUTO 1.14 K/mm3 (0.84-5.20); LYMPHOCYTES PERCENT AUTO 14 % (21-46); MONOCYTES ABSOLUTE AUTO 0.75 K/mm3 (0.16-1.47); MONOCYTES PERCENT AUTO 9 % (4-13); Mean Corpuscular HGB 24.2 pg (26.0-34.0); Mean Corpuscular HGB Conc 30.1 g/dL (31.5-36.5); Mean Corpuscular Volume 80 fL (80-100); Mean Platelet Volume 9.4 fL (9.1-12.4); NEUTROPHILS ABSOLUTE AUTO 5.43 K/mm3 (1.96-9.15); NEUTROPHILS PERCENT AUTO 68 % (41-73); NRBC ABSOLUTE 0.16 K/mm3 (0.00-0.02); Platelet Count 239 K/mm3 (150-400); RDW Coefficient Variation 23.9 % (11.7-14.2); RDW Standard Deviation 60.8 fL (35.1-46.3); Red Blood Cell Count 3.68 M/mm3 (3.80-5.20); White Blood Cell Count 7.98 K/mm3 (4.00-11.30)
--- NOTE | 2020-04-05 05:20 | NUR ---
AREA REPRESENTATIVE SUMMARY A/O X3. APPERARED TO SLEEP T/O THE NIGHT. C/O HEADACHE, MEDICATED PER EMAR X1. BREATHING IS UNLABORED. VSS. NO ACUTE CHANGES AT THIS TIME. BED IN LOWEST POSITION WITH CALL LIGHT IN REACH. WILL CONTINUE TO MONITOR AND REPORT TO ONCOMING RN.
[2020-04-05 05:33] LABS: Alanine Aminotransfer (ALT/SGP 48 U/L (12-78); Albumin, Blood 2.7 g/dL (3.4-5.0); Albumin/Globulin Ratio 0.7 (0.8-1.8); Alk Phos 101 U/L (50-136); Anion Gap 6 mmol/L (6-16); Aspartate Aminotrans (AST/SGOT 55 U/L (12-37); Bilirubin, Direct 1.2 mg/dL (0.0-0.3); Bilirubin, Indirect 1.2 mg/dL (0.1-0.7); Bilirubin, Total 2.4 mg/dL (0.1-1.0); Blood Urea Nitrogen 10 mg/dL (8-24); Bun/Creatinine Ratio 18.3 (12.0-20.0); CO2, Blood 29 mmol/L (21-32); Calcium, Blood 8.4 mg/dL (8.5-10.1); Chloride, Blood 104 mmol/L (98-108); Creatinine, Blood 0.55 mg/dL (0.40-1.00); Globulin, Blood 3.8 g/dL (2.2-4.0); Glomerular Filtration Rate >60 (60-); Glucose, Blood 117 mg/dL (70-99); Magnesium, Blood 1.5 mg/dL (1.6-2.4); Potassium, Blood 3.3 mmol/L (3.5-5.5); Sodium, Blood 139 mmol/L (136-145); Total Protein, Blood 6.5 g/dL (6.4-8.2)
[2020-04-05 08:08] LABS: HBSAG SCREEN Negative (Negative); HEP B CORE AB, TOT Negative (Negative); HEP C VIRUS AB <0.1 (0.0-0.9)
--- NOTE | 2020-04-05 18:44 | NUR ---
SHIFT SUMMARY PT AxOx4 TODAY WITH INTERMITTENT SLEEPING AND DROWSINESS. PLEASANT AND COOPERATIVE WITH CARE. MILD HEADACHE THIS AM. LACTULOSE STARTED FOR HIGH AMMONIA LEVEL. PRODUCED ONE BM THIS SHIFT. ABDOMEN FIRM AND DISTENDED. DENIES ABD PAIN. PT FLUID RESTRICTED TO 1500ML QSHIFT. IRON INFUSION, POTASSIUM AND MAG IV INFUSIONS TODAY. HGB STABLE. ABX SWITCHED TO NEOMYCIN. PT TOLERATED WELL. PT SBA, GAIT IS STEADY. PER MAJOR LEAGUE BASEBALL PLAYER, SR 89. VITALS REVIEWED. PT RESTING IN BED WITH CALL LIGHT IN REACH.
--- NOTE | 2020-04-06 04:08 | NUR ---
BASKETBALL REFEREE SUMMARY PT APPEARED TO SLEEP T/O NIGHT. DENIES PAIN AT THIS TIME. CONTINUES TO BE ON 1500ML FLUID RESTRICITIONS DAILY. VSS. NO ACUTE CHANGES NOTED. BED IN LOWEST POSITION WITH CALL LIGHT IN REACH. WILL CONTINUE TO MONITOR AND REPORT TO ONCOMING RN.
[2020-04-06 04:21] LABS: BASOPHILS ABSOLUTE AUTO 0.08 K/mm3 (0.00-0.23); BASOPHILS PERCENT AUTO 1 % (0-2); EOSINOPHILS ABSOLUTE AUTO 0.41 K/mm3 (0.00-0.68); EOSINOPHILS PERCENT AUTO 6 % (0-6); Hematocrit 31.6 % (33.0-51.0); Hemoglobin 9.6 g/dL (11.5-16.0); IMMATURE GRAN ABSOLUTE AUTO 0.12 K/mm3 (0.00-0.10); IMMATURE GRAN PERCENT AUTO 2 % (0-1); LYMPHOCYTES ABSOLUTE AUTO 1.26 K/mm3 (0.84-5.20); LYMPHOCYTES PERCENT AUTO 17 % (21-46); MONOCYTES ABSOLUTE AUTO 0.63 K/mm3 (0.16-1.47); MONOCYTES PERCENT AUTO 9 % (4-13); Mean Corpuscular HGB 25.1 pg (26.0-34.0); Mean Corpuscular HGB Conc 30.4 g/dL (31.5-36.5); Mean Corpuscular Volume 83 fL (80-100); Mean Platelet Volume 8.8 fL (9.1-12.4); NEUTROPHILS ABSOLUTE AUTO 4.74 K/mm3 (1.96-9.15); NEUTROPHILS PERCENT AUTO 65 % (41-73); NRBC ABSOLUTE 0.04 K/mm3 (0.00-0.02); NRBC Auto 0.6 /100 WBC (0.0-0.2); Platelet Count 185 K/mm3 (150-400); RDW Coefficient Variation 26.6 % (11.7-14.2); RDW Standard Deviation 64.9 fL (35.1-46.3); Red Blood Cell Count 3.82 M/mm3 (3.80-5.20); White Blood Cell Count 7.24 K/mm3 (4.00-11.30)
[2020-04-06 04:43] LABS: Magnesium, Blood 1.7 mg/dL (1.6-2.4)
[2020-04-06 04:44] LABS: Alanine Aminotransfer (ALT/SGP 45 U/L (12-78); Albumin, Blood 2.8 g/dL (3.4-5.0); Albumin/Globulin Ratio 0.7 (0.8-1.8); Alk Phos 96 U/L (50-136); Anion Gap 6 mmol/L (6-16); Aspartate Aminotrans (AST/SGOT 55 U/L (12-37); Bilirubin, Total 2.4 mg/dL (0.1-1.0); Blood Urea Nitrogen 6 mg/dL (8-24); Bun/Creatinine Ratio 12.4 (12.0-20.0); CO2, Blood 28 mmol/L (21-32); Calcium, Blood 8.8 mg/dL (8.5-10.1); Chloride, Blood 108 mmol/L (98-108); Creatinine, Blood 0.49 mg/dL (0.40-1.00); Globulin, Blood 3.9 g/dL (2.2-4.0); Glomerular Filtration Rate >60 (60-); Glucose, Blood 85 mg/dL (70-99); Potassium, Blood 3.2 mmol/L (3.5-5.5); Sodium, Blood 142 mmol/L (136-145); Total Protein, Blood 6.7 g/dL (6.4-8.2)
--- NOTE | 2020-04-06 18:15 | NUR ---
shift summary Patient is very distended. notes that she is still independent but denies any chest pain or shortness of breath. she was restricted to a 1000ml fluid restriction again. she will be having a paracentesis tomorrow.
[2020-04-07 05:01] LABS: Hematocrit 36.3 % (33.0-51.0); Hemoglobin 10.7 g/dL (11.5-16.0)
[2020-04-07 05:16] LABS: International Normalized Ratio 1.33
[2020-04-07 05:37] LABS: Free Thyroxine 1.46 ng/dL (0.70-1.60); Magnesium, Blood 1.6 mg/dL (1.6-2.4)
[2020-04-07 05:38] LABS: Anion Gap 8 mmol/L (6-16); Blood Urea Nitrogen 5 mg/dL (8-24); Bun/Creatinine Ratio 11.1 (12.0-20.0); CO2, Blood 27 mmol/L (21-32); Calcium, Blood 8.7 mg/dL (8.5-10.1); Chloride, Blood 109 mmol/L (98-108); Creatinine, Blood 0.45 mg/dL (0.40-1.00); Glomerular Filtration Rate >60 (60-); Glucose, Blood 95 mg/dL (70-99); Sodium, Blood 144 mmol/L (136-145)
--- NOTE | 2020-04-07 07:54 | NUR ---
COMMERCIAL DRAFTER SUMMARY PT A/O X4, INDEPENDENT IN ROOM. PLEASANT AND COOPERTIVE. PT STATED SHE SLEPT WELL TONIGHT AND HAD 1 WATERY BOWEL MOVEMENT OVERNIGHT. MEDICATED ONCE FOR HEADACHE ON MY SHIFT. PT HR REACHED UP TO 116 WHILE AMBULATING TO THE BATHROOM. AWS DEVELOPER NOTIFIED OF ELEVATED HR. PT DENIED DIZZINESS AND OTHER SYMPTOMS. ONCE PT RETURNED TO BED HR WENT DOWN TO 103. OTHER VSS. REPORT GIVEN TO ONCOMING RN.
--- NOTE | 2020-04-07 15:55 | NUR ---
SHE SAYS SHE FEELS READY TO GO HOME. PLANS TO DC HER. SHE HAS RECEIVED IV KCL REPLACEMENT AND IV IRON TODAY. AFTER LUNCH SHE WAS PUTTING HER MAKEUP ON. HER ABD IS VERY DISTENDED BUT ULTRASOUND SAID TOO LITTLE FLUID TO DO A PARACENTESIS. THE PATIENT AND DISAPPOINTED BY THAT.
[2020-04-07] MEDS ORDERED: FURO40 PO (16:11)
[2020-04-07] MEDS ORDERED: SPIR25 PO (16:13)
[2020-04-07] MEDS ORDERED: LACT10SY PO (16:13)
[2020-04-07] MEDS ORDERED: Acerola C500 MG PO (16:14)
[2020-04-07] MEDS ORDERED: PANT40 PO (16:15)
[2020-04-07] MEDS ORDERED: FERSU300 PO (16:15)
[2020-04-07] MEDS ORDERED: ALBU90OI INH (16:19)
--- NOTE | 2020-04-07 17:45 | NUR ---
PT DISCHARGED VIA WC. IV DCD. PT INSTRUCTED OR GIVEN HANDOUTS/EDUCATION ABOUT NEW MEDICATIONS, RENAL/HEPATIC DIETS, AND DISEASE PROCESS. PT PRESCRIBED MEDICATIONS WAS FAXED TO [facility]. PT ALSO INFORMED ABOUT FOLLOW UP APPOINTMENTS ON APR.[address] BALDERAS; PT ALSO HAS A FOLLOW UP FOR THE PROFESSIONAL HEALTHCARE REPRESENTATIVE JOHNATHAN LEOS TO SET UP FOR A PCP. PT GIVEN A PHONE TO CALL. PT VERBALIZED UNDERSTANDING.
[2020-04-10 13:12] LABS: ALDOS/RENIN RATIO 9.3 (0.0-30.0); ALDOSTERONE 212.8 ng/dL (0.0-30.0)
== END 2020-04-07 17:45 | disposition home or self-care (01) | DRG 812 ==
LOC: ER 11:07 → PCU 11:08 → MEDS 11:08 → PCU 11:08 → MEDS 11:08 → PCU 17:17 → MEDS 04-03 16:37
PROVIDERS: Emergency Medicine; Internal Medicine; Internal Medicine Nephrology; Physician Assistant; ADMIT Family Medicine
DX: D62 Acute posthemorrhagic anemia (principal); N17.9 Acute kidney failure, unspecified; E87.3 Alkalosis; E72.20 Disorder of urea cycle metabolism, unspecified; E87.1 Hypo-osmolality and hyponatremia; Z90.5 Acquired absence of kidney; F17.210 Nicotine dependence, cigarettes, uncomplicated; K70.10 Alcoholic hepatitis without ascites; J44.9 Chronic obstructive pulmonary disease, unspecified; N18.30 Chronic kidney disease, stage 3 unspecified; E88.09 Other disorders of plasma-protein metabolism, not elsewhere classified; F41.8 Other specified anxiety disorders; E87.6 Hypokalemia; E83.39 Other disorders of phosphorus metabolism; K72.90 Hepatic failure, unspecified without coma; K70.31 Alcoholic cirrhosis of liver with ascites; E87.70 Fluid overload, unspecified
CPT/HCPCS: 36415; 36430; 36600; 70450; 71045; 76700; 76705; 80053; 80069; 81050; 82088; 82140; 82248; 82272; 82533; 82607; 82728; 82746; 82803; 83540; 83550; 83690; 83735; 83880; 84100; 84145; 84156; 84244; 84439; 84443; 84481; 84484; 84550; 85014; 85018; 85025; 85027; 85610; 85730; 86317; 86704; 86708; 86803; 86850; 86900; 86901; 86923; 87340; 93005; 93010; 93306; 96360; 99285-25; A9270; C9113; G0008; J0881; J1940; J2916; J3475; J3480; J7030; J7040; J7050; J7060; J7120; P9016; Q2038; U0004

== ENCOUNTER 2021-01-06 10:30 | Day surgery (SDC) | payer OTHER ==
[~2021-01-06] VITALS: Ht 152.4 cm; Wt 72.0 kg
[~2021-01-06 10:30] MED LIST changes: +ACET500 PO; +Acerola C500 MG PO; +FERSU300 PO; +IBUP200 PO; +MELATONIN10 M5 PO; +NEURONTIN400 MG PO; +PANT40 PO
[2021-01-06] MEDS ORDERED: METO5A PO (10:54)
[2021-01-06] MEDS ORDERED: LACT10SY PO (10:54)
[2021-01-06] MEDS ORDERED: TRAZ50 PO (10:54)
[2021-01-06] MEDS ORDERED: BANOPHEN25 MG PO (10:55)
[2021-01-06] MEDS ORDERED: ALBU90OI INH (10:55)
== END 2021-01-06 12:15 | disposition home or self-care (01) ==
LOC: ORSCSDS 10:30
PROVIDERS: Internal Medicine Gastroenterology
PROC: 0DB68ZX Excision of Stomach, Via Natural or Artificial Opening Endoscopic, Diagnostic (ICD-10-PCS; principal; 2021-01-06 11:45)
PROC: 0DB98ZX Excision of Duodenum, Via Natural or Artificial Opening Endoscopic, Diagnostic (ICD-10-PCS; principal; 2021-01-06 11:45)
DX: K25.9 Gastric ulcer, unspecified as acute or chronic, without hemorrhage or perforation (principal); K76.6 Portal hypertension; I85.00 Esophageal varices without bleeding; F32.9 Major depressive disorder, single episode, unspecified; K31.89 Other diseases of stomach and duodenum; K20.80 Other esophagitis without bleeding; D50.9 Iron deficiency anemia, unspecified; F17.210 Nicotine dependence, cigarettes, uncomplicated; Z79.899 Other long term (current) drug therapy
CPT/HCPCS: 88305; 88342; J2704; J7120

== ENCOUNTER 2021-03-21 08:30 | Inpatient (IN) | payer OTHER ==
[~2021-03-21] VITALS: Ht 152.4 cm; Wt 77.8 kg
[~2021-03-21 08:30] MED LIST changes: +BANOPHEN25 MG PO; +METO5A PO; +TRAZ50 PO
[2021-03-21 09:37] LABS: BASOPHILS ABSOLUTE AUTO 0.09 K/mm3 (0.00-0.23); BASOPHILS PERCENT AUTO 2 % (0-2); EOSINOPHILS ABSOLUTE AUTO 0.16 K/mm3 (0.00-0.68); EOSINOPHILS PERCENT AUTO 3 % (0-6); Hematocrit 21.3 % (33.0-51.0); Hemoglobin 6.7 g/dL (11.5-16.0); IMMATURE GRAN ABSOLUTE AUTO 0.02 K/mm3 (0.00-0.10); IMMATURE GRAN PERCENT AUTO 0 % (0-1); LYMPHOCYTES ABSOLUTE AUTO 1.05 K/mm3 (0.84-5.20); LYMPHOCYTES PERCENT AUTO 18 % (21-46); MONOCYTES ABSOLUTE AUTO 0.68 K/mm3 (0.16-1.47); MONOCYTES PERCENT AUTO 12 % (4-13); Mean Corpuscular HGB 25.3 pg (26.0-34.0); Mean Corpuscular HGB Conc 31.5 g/dL (31.5-36.5); Mean Corpuscular Volume 80 fL (80-100); Mean Platelet Volume 10.9 fL (9.1-12.4); NEUTROPHILS ABSOLUTE AUTO 3.75 K/mm3 (1.96-9.15); NEUTROPHILS PERCENT AUTO 65 % (41-73); Platelet Count 255 K/mm3 (150-400); RDW Coefficient Variation 22.7 % (11.7-14.2); RDW Standard Deviation 64.7 fL (35.1-46.3); Red Blood Cell Count 2.65 M/mm3 (3.80-5.20); White Blood Cell Count 5.75 K/mm3 (4.00-11.30)
[2021-03-21 09:45] LABS: Alanine Aminotransfer (ALT/SGP 35 U/L (12-78); Albumin, Blood 2.3 g/dL (3.4-5.0); Albumin/Globulin Ratio 0.5 (0.8-1.8); Alk Phos 131 U/L (50-136); Anion Gap 9 mmol/L (6-16); Aspartate Aminotrans (AST/SGOT 84 U/L (12-37); Bilirubin, Total 0.9 mg/dL (0.1-1.0); Blood Urea Nitrogen 4 mg/dL (8-24); Bun/Creatinine Ratio 7.2 (12.0-20.0); CO2, Blood 25 mmol/L (21-32); Calcium, Blood 8.2 mg/dL (8.5-10.1); Chloride, Blood 107 mmol/L (98-108); Creatinine, Blood 0.56 mg/dL (0.40-1.00); Globulin, Blood 4.9 g/dL (2.2-4.0); Glomerular Filtration Rate >60 (60-); Glucose, Blood 126 mg/dL (70-99); Potassium, Blood 3.1 mmol/L (3.5-5.5); Sodium, Blood 141 mmol/L (136-145); Total Protein, Blood 7.2 g/dL (6.4-8.2)
[2021-03-21 09:47] LABS: International Normalized Ratio 1.19; Prothrombin Time Results 12.4 Sec (9.7-11.5)
[2021-03-21] MEDS ORDERED: METO5A PO (11:45)
[2021-03-21 12:32] LABS: SARS-Cov-2 (COVID-19) PCR, MMC NEGATIVE (NEGATIVE)
[2021-03-21 13:19] LABS: Percent Saturation 4.2 % (15.0-50.0)
--- NOTE | 2021-03-21 17:27 | NUR ---
PT ARRIVED AOX4 TO ROOM AT 1444. PT IS RESTING QUIETLY AT THIS TIME AND RECEIVING HER UNIT OF BLOOD. NO DISTRESS NOTED AND PT DOES WELL INDEPENDENT IN ROOM. PT WAS TREATED FOR ABD PAIN PER EMAR. WILL CONTINUE TO MONITOR CALL LIGNH IS WITHIN REACH.
[2021-03-22 04:55] LABS: BASOPHILS ABSOLUTE AUTO 0.06 K/mm3 (0.00-0.23); BASOPHILS PERCENT AUTO 1 % (0-2); EOSINOPHILS PERCENT AUTO 2 % (0-6); Hematocrit 22.2 % (33.0-51.0); IMMATURE GRAN ABSOLUTE AUTO 0.02 K/mm3 (0.00-0.10); IMMATURE GRAN PERCENT AUTO 0 % (0-1); LYMPHOCYTES ABSOLUTE AUTO 0.99 K/mm3 (0.84-5.20); LYMPHOCYTES PERCENT AUTO 18 % (21-46); MONOCYTES ABSOLUTE AUTO 0.58 K/mm3 (0.16-1.47); MONOCYTES PERCENT AUTO 11 % (4-13); Mean Corpuscular HGB 25.2 pg (26.0-34.0); Mean Corpuscular HGB Conc 31.5 g/dL (31.5-36.5); Mean Corpuscular Volume 80 fL (80-100); Mean Platelet Volume 10.2 fL (9.1-12.4); NEUTROPHILS ABSOLUTE AUTO 3.69 K/mm3 (1.96-9.15); NEUTROPHILS PERCENT AUTO 68 % (41-73); Platelet Count 190 K/mm3 (150-400); RDW Coefficient Variation 21.4 % (11.7-14.2); RDW Standard Deviation 61.3 fL (35.1-46.3); Red Blood Cell Count 2.78 M/mm3 (3.80-5.20); White Blood Cell Count 5.44 K/mm3 (4.00-11.30)
[2021-03-22 05:17] LABS: Alanine Aminotransfer (ALT/SGP 28 U/L (12-78); Albumin/Globulin Ratio 0.4 (0.8-1.8); Alk Phos 125 U/L (50-136); Anion Gap 8 mmol/L (6-16); Aspartate Aminotrans (AST/SGOT 57 U/L (12-37); Bilirubin, Total 1.9 mg/dL (0.1-1.0); Blood Urea Nitrogen 5 mg/dL (8-24); CO2, Blood 25 mmol/L (21-32); Chloride, Blood 105 mmol/L (98-108); Globulin, Blood 4.5 g/dL (2.2-4.0); Glomerular Filtration Rate >60 (60-); Glucose, Blood 90 mg/dL (70-99); Potassium, Blood 2.9 mmol/L (3.5-5.5); Sodium, Blood 138 mmol/L (136-145); Total Protein, Blood 6.5 g/dL (6.4-8.2)
--- NOTE | 2021-03-22 05:59 | NUR ---
SHIFT SUMMARY PT IS A&OX4,INDEPENDENT IN ROOM. PT HAD BLOOD TRANSFUSION COMPLETED ON THIS SHIFT, TOLERATED WELL. PT C/O NAUSEA AND PAIN.PRN ADMINISTERED PER EMAR WITH GOOD EFFECTS. ADLS PROVIDED, SAFETY MEASURES IN PLACE.WILL CONTINUE TO MONITOR.
--- NOTE | 2021-03-22 11:21 | NUR ---
PT RECENTLY TO DAYSURGERY BY LYLE. History, Chart, Medications and Allergies reviewed before start of procedure. Lungs clear T/O to Auscultation. Patient confirms NPO status and agrees with scheduled surgery. Pre-Op teaching done. Pt verbalizes understanding. DISCUSSED PT'S MEDICAL STATUS WITH DR CEBALLOS, REPORTS PT COMPENSATING WELL, OK TO USE RN PROPOFOL.
--- NOTE | 2021-03-22 11:34 | NUR ---
03/22/21 1134 Handy Davis History, Chart, Medications and Allergies reviewed before start of procedure. Patient confirms NPO status and agrees with scheduled surgery. 3-LEAD EKG REVIEWED WITH PHYSICIAN PRIOR TO START OF PROCEDURE. MONITOR INTACT WITH CONTINUOUS PULSE OXIMETRY AND INTERMITTENT BP. PATIENT DETERMINED TO BE ASA APPROPRIATE FOR PROPOFOL SEDATION PRIOR TO START OF PROCEDURE BY DR. CEBALLOS. Bite Block Placed, WILL BE REMOVED AFTER PROCEDURE.
[2021-03-22 15:19] LABS: Albumin, Body Fluid 0.1 g/dL
[2021-03-22 15:26] LABS: Automated BF WBC Count 0.206 K/mm3 (0-999); Body Fluid WBC Count 206 /mm3 (0-999)
[2021-03-22 15:28] LABS: Protein, Body Fluid 0.9 g/dL
[2021-03-22 15:52] LABS: Appearance, Body Fluid Clear (Clear); Color, Body Fluid L Yellow (None-Yellow); RBC Count, Body Fluid 120 /mm3 (0-0)
[2021-03-22 16:11] LABS: Total Cell Count, Body Fluid 100
--- NOTE | 2021-03-22 16:40 | NUR ---
SHIFT SUMMARY PATIENT IS ALERT AND ORIENTATED X4. INDEPENDENT IN ROOM. PATIENT HAS BEEN COOPERATIVE AND PLEASENT THIS SHIFT. PATIENT HAS GONE DOWN FOR ABD SCAN AND A PARACENTESIS DONE AND HAD 1550ML TAKEN OFF. NO ACUTE EVENTS THIS SHIFT. VITAL SIGNS REVIEWED. WILL CONTINUE TO MONITOR UNTIL SHIFT CHANGE.
[2021-03-23 04:43] LABS: Hematocrit 21.6 % (33.0-51.0); Hemoglobin 6.7 g/dL (11.5-16.0); Mean Corpuscular HGB 25.2 pg (26.0-34.0); Mean Corpuscular Volume 81 fL (80-100); Mean Platelet Volume 10.3 fL (9.1-12.4); NRBC ABSOLUTE 0.02 K/mm3 (0.00-0.02); NRBC Auto 0.4 /100 WBC (0.0-0.2); Platelet Count 150 K/mm3 (150-400); RDW Coefficient Variation 21.6 % (11.7-14.2); RDW Standard Deviation 63.1 fL (35.1-46.3); Red Blood Cell Count 2.66 M/mm3 (3.80-5.20); White Blood Cell Count 4.52 K/mm3 (4.00-11.30)
[2021-03-23 05:06] LABS: Alanine Aminotransfer (ALT/SGP 25 U/L (12-78); Albumin, Blood 2.1 g/dL (3.4-5.0); Albumin/Globulin Ratio 0.5 (0.8-1.8); Alk Phos 118 U/L (50-136); Anion Gap 6 mmol/L (6-16); Aspartate Aminotrans (AST/SGOT 46 U/L (12-37); Bilirubin, Total 1.5 mg/dL (0.1-1.0); Blood Urea Nitrogen 4 mg/dL (8-24); Bun/Creatinine Ratio 7.3 (12.0-20.0); CO2, Blood 29 mmol/L (21-32); Calcium, Blood 8.4 mg/dL (8.5-10.1); Chloride, Blood 107 mmol/L (98-108); Creatinine, Blood 0.55 mg/dL (0.40-1.00); Globulin, Blood 4.2 g/dL (2.2-4.0); Glomerular Filtration Rate >60 (60-); Glucose, Blood 90 mg/dL (70-99); Potassium, Blood 2.8 mmol/L (3.5-5.5); Sodium, Blood 142 mmol/L (136-145); Total Protein, Blood 6.3 g/dL (6.4-8.2)
--- NOTE | 2021-03-23 07:23 | NUR ---
PATIENT IS ALERT AND ORIENTED X4. PATIENT WAS ADMITTED FOR ACUTE SHORTNESS OF BREATH. PATIENT DENIES ABDOMINAL PAIN, SOB, CHEST PAIN OR PALPITATONS. PATIENT DENIES N/V. PATIENT SLEPT WELL ALL NIGHT, NO ACUTE EVENT NOTED OR REPORTED. WILL CONTINUE TO MONITOR.
[2021-03-23] MEDS ORDERED: FERSU300 PO (12:30)
--- NOTE | 2021-03-23 16:24 | NUR ---
DISCHARGE NOTE PATIENT WAS DISCHARGED VIA WHEEL CHAIR HOME TO FRIEND. PATIENT VERBALIZED UNDERSTANDING OF DISCHARGE INSTRUCTIONS AND MEDICATION LIST. PATIENT DID NOT HAVE ANY FURTHER QUESTIONS REGARDING THEIR CARE AT DISCHARGE.
== END 2021-03-23 16:04 | disposition home or self-care (01) | DRG 812 ==
LOC: ER 08:30 → MEDS 12:45 → ENPENDDIS 03-23 13:11 → MEDS 03-23 16:04
PROVIDERS: Emergency Medicine; Internal Medicine Gastroenterology; ADMIT Internal Medicine
PROC: 30233N1 Transfusion of Nonautologous Red Blood Cells into Peripheral Vein, Percutaneous Approach (ICD-10-PCS; principal; 2021-03-21)
PROC: 0W9G3ZZ Drainage of Peritoneal Cavity, Percutaneous Approach (ICD-10-PCS; 2021-03-22)
PROC: 0DJ08ZZ Inspection of Upper Intestinal Tract, Via Natural or Artificial Opening Endoscopic (ICD-10-PCS; 2021-03-22)
DX: D50.0 Iron deficiency anemia secondary to blood loss (chronic) (principal); K76.6 Portal hypertension; I85.10 Secondary esophageal varices without bleeding; Z66 Do not resuscitate; Z20.822 Contact with and (suspected) exposure to COVID-19; K70.31 Alcoholic cirrhosis of liver with ascites; E87.6 Hypokalemia; J44.9 Chronic obstructive pulmonary disease, unspecified; I10 Essential (primary) hypertension; F17.210 Nicotine dependence, cigarettes, uncomplicated; Z98.890 Other specified postprocedural states; Z79.899 Other long term (current) drug therapy
CPT/HCPCS: 36415; 36430; 49083; 71045; 74176; 80053; 82042; 82140; 82272; 82728; 83540; 83550; 83690; 84157; 85025; 85027; 85610; 86850; 86900; 86901; 86920; 86922; 87070; 87205; 89051; 93005; 93010; 94760; 96374; 99285-25; A9270; C9113; J2405; J2704; J2916; J7030; J7050; J7120; P9016; P9041; U0004

== ENCOUNTER 2021-06-12 23:54 | Emergency (ER) | payer OTHER ==
[~2021-06-12] VITALS: Ht 157.5 cm; Wt 63.5 kg
[2021-06-13 00:40] LABS: BASOPHILS ABSOLUTE AUTO 0.08 K/mm3 (0.00-0.23); BASOPHILS PERCENT AUTO 2 % (0-2); EOSINOPHILS ABSOLUTE AUTO 0.09 K/mm3 (0.00-0.68); EOSINOPHILS PERCENT AUTO 2 % (0-6); Hematocrit 34.2 % (33.0-51.0); Hemoglobin 11.8 g/dL (11.5-16.0); IMMATURE GRAN ABSOLUTE AUTO 0.01 K/mm3 (0.00-0.10); IMMATURE GRAN PERCENT AUTO 0 % (0-1); LYMPHOCYTES ABSOLUTE AUTO 0.86 K/mm3 (0.84-5.20); LYMPHOCYTES PERCENT AUTO 18 % (21-46); MONOCYTES ABSOLUTE AUTO 0.83 K/mm3 (0.16-1.47); MONOCYTES PERCENT AUTO 17 % (4-13); Mean Corpuscular HGB 28.2 pg (26.0-34.0); Mean Corpuscular HGB Conc 34.5 g/dL (31.5-36.5); Mean Corpuscular Volume 82 fL (80-100); Mean Platelet Volume 10.1 fL (9.1-12.4); NEUTROPHILS ABSOLUTE AUTO 2.96 K/mm3 (1.96-9.15); NEUTROPHILS PERCENT AUTO 61 % (41-73); Platelet Count 208 K/mm3 (150-400); RDW Standard Deviation 58.7 fL (35.1-46.3); Red Blood Cell Count 4.18 M/mm3 (3.80-5.20); White Blood Cell Count 4.83 K/mm3 (4.00-11.30)
[2021-06-13 00:58] LABS: Alanine Aminotransfer (ALT/SGP 47 U/L (12-78); Albumin, Blood 2.9 g/dL (3.4-5.0); Albumin/Globulin Ratio 0.6 (0.8-1.8); Alk Phos 145 U/L (50-136); Anion Gap 12 mmol/L (6-16); Aspartate Aminotrans (AST/SGOT 167 U/L (12-37); Bilirubin, Total 2.3 mg/dL (0.1-1.0); Blood Urea Nitrogen 5 mg/dL (8-24); Bun/Creatinine Ratio 8.5 (12.0-20.0); CO2, Blood 30 mmol/L (21-32); Calcium, Blood 9.9 mg/dL (8.5-10.1); Chloride, Blood 91 mmol/L (98-108); Creatinine, Blood 0.59 mg/dL (0.40-1.00); Ethanol (Alcohol), Blood, Med 208 mg/dL; Globulin, Blood 5.2 g/dL (2.2-4.0); Glomerular Filtration Rate >60 (60-); Glucose, Blood 114 mg/dL (70-99); Potassium, Blood 2.5 mmol/L (3.5-5.5); Sodium, Blood 133 mmol/L (136-145); Total Protein, Blood 8.1 g/dL (6.4-8.2)
[2021-06-13 01:02] LABS: Magnesium, Blood 1.1 mg/dL (1.6-2.4)
[2021-06-13 01:05] LABS: International Normalized Ratio 1.33; Prothrombin Time Results 13.7 Sec (9.7-11.5)
== END 2021-06-13 02:37 | disposition home or self-care (01) ==
LOC: ER 23:54
PROVIDERS: Emergency Medicine
DX: E87.6 Hypokalemia (principal); E83.42 Hypomagnesemia; F10.229 Alcohol dependence with intoxication, unspecified; D64.9 Anemia, unspecified; F17.210 Nicotine dependence, cigarettes, uncomplicated; Z79.899 Other long term (current) drug therapy
CPT/HCPCS: 36415; 80053; 83690; 83735; 85025; 85610; 86850; 86870; 86900; 86901; 86905; A9270; G0480; J3475; J3480; J7030